=== PATIENT | female | born 1950 | race Caucasian/White ===

== ENCOUNTER → 2019-01-01 11:42 | Outpatient (CLI) | payer MEDICARE, OTHER, SELFPAY ==
--- NOTE | 2019-01-01 | DI.MRI.S_ITS ---
PROCEDURE: MR KNEE LT WO CON INDICATIONS: Unilateral primary osteoarthritis, left knee TECHNIQUE: Noncontrast sagittal PD fast spin echo and T2 fast spin echo with fat saturation, sagittal 3-D FLASH with fat saturation; coronal T1 spin echo and PD fast spin echo with fat saturation, and axial PD fast spin echo with fat saturation through the knee. COMPARISON: [facility], MR, KNEE WITHOUT CONTRAST, 01/25/2017, 12:17. FINDINGS: Image quality: Excellent. Menisci: Medial meniscal tear involving the body and posterior horn. There is partial extrusion, and large radial defect seen on image 25 series 10. Lateral meniscus grossly intact Cruciate ligaments: Thickening and striated appearance of the anterior cruciate ligament. There is T2 hyperintensity and findings suggest mucoid degeneration versus age-indeterminate sprain Medial structures: The medial collateral ligament appears intact although mild proximal thickening, also age unknown. Semimembranosus insertional tendinopathy and thickening. Mild fluid adjacent to the pes anserinus suggestive of low-grade bursitis. Lateral structures: The lateral collateral ligament, long and short heads of the biceps femoris tendon appear intact. The popliteus tendon appears normal; the popliteofibular ligament appears intact. The posterosuperior and anteroinferior popliteomeniscal fascicles appear intact. The arcuate and fabellofibular ligaments appear intact, on either side of the lateral inferior geniculate artery. Iliotibial band appears normal. Anterior structures: Quadriceps tendon grossly intact. There is mild patellar tendinopathy. Prepatellar and superficial infrapatellar subcutaneous edema/fluid. Bones and cartilage: No focal marrow contusion or discrete low signal fracture line. Within the medial compartment, diffuse partial thickness loss of the femoral (near full-thickness) and tibial articular cartilage. Within the lateral compartment, intrasubstance signal change of the central weightbearing tibial cartilage. Diffuse partial thickness loss of the femoral cartilage. Within the patellofemoral compartment, diffuse partial thickness loss of the patellar and trochlear cartilage. Joint space: There is physiologic knee joint fluid. No Gutierrez's cyst. IMPRESSION: Medial meniscal tear involving the body and posterior horn with partial extrusion as detailed above. Signal changes and thickening of the anterior cruciate ligament suggestive of age indeterminate sprain versus mucoid degeneration. Mild patellar tendinopathy. Tricompartmental degenerative joint disease as above. Mild pes anserinus bursitis. Low-grade proximal MCL sprain, age unknown. Dictated by: Alex Villar M.D. on 01/01/2019 at 13:37 Approved by: Alex Villar M.D. on 01/01/2019 at 14:00
== END ==
PROVIDERS: PCP Family Medicine; Visit Provider Orthopaedic Surgery
DX: M17.12 Unilateral primary osteoarthritis, left knee (principal); S83.242A Other tear of medial meniscus, current injury, left knee, initial encounter; S83.412A Sprain of medial collateral ligament of left knee, initial encounter; M67.962 Unspecified disorder of synovium and tendon, left lower leg; M71.562 Other bursitis, not elsewhere classified, left knee
CPT/HCPCS: 73721

== ENCOUNTER → 2019-01-30 09:41 | Outpatient (CLI) | payer MEDICARE, OTHER, SELFPAY ==
--- NOTE | 2019-01-30 | DI.US.S_ITS ---
PROCEDURE: US THYROID INDICATIONS: RIGHT THYROID NODULE TECHNIQUE: Real-time scanning was performed of the thyroid gland, with image documentation. COMPARISON: [facility], , US THYROID, 10/02/2018, 22:02. FINDINGS: Patient was reexamined and the previously visualized right inferior thyroid nodule was unable to be clearly seen and therefore no fine-needle aspiration was performed. IMPRESSION: Diffusely heterogeneous thyroid and no focal nodule was able to be clearly visualized on today's examination. No FNA performed. Dictated by: Elroy Brennan Sherly Interpreted: Jennie Jones MD on 01/30/2019 at 13:55 Approved by: Jennie Jones M.D. on 01/30/2019 at 17:58
== END ==
PROVIDERS: PCP Family Medicine; Visit Provider Otolaryngology
DX: E04.1 Nontoxic single thyroid nodule (principal)
CPT/HCPCS: 76536

== ENCOUNTER 2019-03-05 15:22 | Emergency (ER) | payer MEDICARE, OTHER, SELFPAY ==
[2019-03-05 15:25] VITALS: BP 182/88; PULSE 78; RESP 18; TEMP 37.1; O2SAT 98
--- NOTE | 2019-03-05 15:39 | PC.NURSE ---
dr vazquez at bs. pt with cervical collar , with slow bilateral nostril bleeding, dr vazquez applied afrin spray, with nose clips. pt c/o jaw pain, neck pain, right lower knee pain. family at [facility].
--- NOTE | 2019-03-05 15:44 | DI.CT.S_ITS ---
PROCEDURE: CT FACIAL BONES WO CON INDICATIONS: fall forward nose bleed TECHNIQUE: Noncontrast 2.5 mm thick axial images acquired from the mandible through the frontal sinuses, with coronal and sagittal reformatting. For radiation dose reduction, the following was used: automated exposure control, adjustment of mA and/or kV according to patient size. COMPARISON: None. FINDINGS: Image quality: Excellent. Bones and teeth: Orbital barnes are intact. Sinus barnes show no fracture or deformity. Nasal bones and septum are injured with mild impaction of bilateral nasal bone fractures and also a sigmoid curvature of the midline nasal septum with slight irregularity of the middle third of the septum to the degree that slightly displaced midline nasal septum fracture is considered likely present. Visualized portions of the mandible demonstrate no fractures or subluxation. Zygomatic arches are intact. Pterygoid plates are intact. Visualized portions of the skull base and auditory canals are intact. Sinuses: Paranasal sinuses are aerated, without fluid levels, mucosal thickening, or mucoceles. Mastoid air cells are aerated. Soft tissues: No edema, masses, or fluid collections. There is soft tissue opacification through the midline nasal airway is, slightly greater on the left than the right, consistent with reflux of epistaxis in the setting of bilateral acute nasal bone fractures. No enlarged lymph nodes. No soft tissue lacerations or debris. Vascular: Visualized vascular structures appear normal in the absence of contrast. Bony vascular foramina and canals are intact. IMPRESSION: No orbital fracture found, bilaterally mildly impacted acute nasal bone fractures are present. The midline nasal septum also likely is fractured in the setting of its sigmoid curvature and slight irregularity through its middle third. Secondary reflux of epistaxis is the presumed cause for partial opacification of the bilateral nasal airways greater on the left than the right and the adjacent ethmoid air cells. Dictated by: Luis Fernando Mckeon M.D. on 03/05/2019 at 16:22 Approved by: Luis Fernando Mckeon M.D. on 03/05/2019 at 16:25
--- NOTE | 2019-03-05 15:44 | DI.CT.S_ITS ---
PROCEDURE: CT CERVICAL SPINE WO CON INDICATIONS: fall forward TECHNIQUE: Noncontrast 3 mm thick sections acquired from the skull base to the T4 level. Sagittal and coronal reformats were then constructed. For radiation dose reduction, the following was used: automated exposure control, adjustment of mA and/or kV according to patient size. COMPARISON: None. FINDINGS: Image quality: Excellent. Bones: No fractures or dislocations. Visualized superior ribs are intact. Soft tissues: Prevertebral soft tissues are normal in thickness. No paravertebral hematomas. No apical pneumothoraces. IMPRESSION: No fracture or traumatic subluxation found. Dictated by: Luis Fernando Mckeon M.D. on 03/05/2019 at 16:25 Approved by: Luis Fernando Mckeon M.D. on 03/05/2019 at 16:25
--- NOTE | 2019-03-05 15:44 | DI.RAD.S_ITS ---
PROCEDURE: XR KNEE RT 3V INDICATIONS: A 68-year-old woman history of fall and right knee pain. TECHNIQUE: 3 views of the knee were acquired. COMPARISON: [facility] [place], CR, XR KNEE ARTHRITIC SERIES , 12/20/2018, 10:17. FINDINGS: Bones: There is right knee total arthroplasty. The right kidney prosthesis appears intact.. No fractures or dislocations. No suspicious bony lesions. Soft tissues: Small to moderate joint effusion. No suspicious soft tissue calcifications. IMPRESSION: 1. No acute bony abnormalities. 2. Post surgical changes with right knee total arthroplasty. 3. Small to moderate knee joint effusion. Dictated by: Jennie Jones M.D. on 03/05/2019 at 16:11 Approved by: Jennie Jones M.D. on 03/05/2019 at 16:15
--- NOTE | 2019-03-05 15:44 | DI.CT.S_ITS ---
PROCEDURE: CT HEAD/BRAIN WO CON INDICATIONS: fall forward TECHNIQUE: Noncontrast 4.5 mm thick angled axial sections acquired from the foramen magnum to the vertex, with coronal and sagittal reformats. For radiation dose reduction, the following was used: automated exposure control, adjustment of mA and/or kV according to patient size. COMPARISON: None. FINDINGS: Image quality: Excellent. CSF spaces: Basal cisterns are patent. No extra-axial fluid collections. The ventricles are symmetric in size and shape. Brain: No intracranial bleeds or masses. There is cerebral volume loss for age, with resultant ventricular and sulcal prominence. There are periventricular and deep white matter chronic small vessel ischemic changes. There is intracranial internal carotid artery atherosclerosis. Skull and face: Calvarium and visualized facial bones appear intact, without suspicious lesions. Sinuses: Visualized sinuses and mastoids are clear except for presence of what appears to be reflux of epistaxis into the nasal airway associated with bilateral mildly impacted nasal bone fractures appear acute. IMPRESSION: No brain parenchymal injury or intracranial hemorrhage is found. Reflux of epistaxis into the nasal airway is present bilaterally with opacification, consistent with posttraumatic change after bilateral nasal bone fractures. Dictated by: Luis Fernando Mckeon M.D. on 03/05/2019 at 16:21 Approved by: Luis Fernando Mckeon M.D. on 03/05/2019 at 16:22
--- NOTE | 2019-03-05 15:47 | ED_ITS ---
HPI - Fall General Chief Complaint: Fall Stated Complaint: fall Time Seen by Provider: 03/05/19 15:43 Source: patient Mode of arrival: ambulatory Limitations: no limitations History of Present Illness HPI Narrative: Patient is a 68-year-old female on aspirin tripped and fell over a curb. She fell forward landing flat on her face. She had quite a bit of blood loss from her nose. No loss of consciousness she has no neck pain. She is complaining of nose pain. No loose teeth. She fell onto her knees as well mostly her right knee hurts. Also complaining of some right shoulder pain, had previous injury there. Patient was here for an outpatient DVT study of her left leg for swelling. MD complaint: fall Onset (ago): minute(s) Related Data Home Medications Medication Instructions Recorded Confirmed Lantus U-100 Insulin 30 units SQ QPM #0 04/05/17 03/05/19 metformin 1,000 mg PO BIDCC #0 04/05/17 03/05/19 simvastatin 20 mg PO BEDTIME #0 04/05/17 03/05/19 aspirin 81 mg PO DAILY 03/05/19 03/05/19 insulin glargine [Lantus U-100 70 units SUBCUT QAM 03/05/19 03/05/19 Insulin] insulin syringe-needle U-100 [BD 03/05/19 03/05/19 Insulin Syringe Ultra-Fine] lisinopril 5 mg PO DAILY 03/05/19 03/05/19 Previous Rx's Medication Instructions Recorded hydrocodone-acetaminophen [[place]] 1 tab PO Q4-6H PRN #10 tab 03/05/19 Allergies Allergy/AdvReac Type Severity Reaction Status Date / Time Penicillins [PENICILLINS] Allergy Severe HIVES Verified 03/05/19 16:10 vancomycin [VANCOMYCIN] Allergy Severe HIVES Verified 03/05/19 16:10 adhesive tape [ADHESIVE TAPE] Allergy Intermediate BLISTERS Verified 03/05/19 16:10 PAPER/FOAM TAPE OK phenylephrine [PHENYLEPHRINE] Allergy Intermediate HIVES Verified 03/05/19 16:10 Sulfa (Sulfonamide Allergy Intermediate HIVES Verified 03/05/19 16:10 Antibiotics) [SULFA (SULFONAMIDE ANTIBIOTICS)] nickel [NICKEL] Allergy Mild HIVES Verified 03/05/19 16:10 potassium chloride Allergy Mild HIVES Verified 03/05/19 16:10 [POTASSIUM CHLORIDE] Review of Systems Review of Systems ROS Unobtainable: All systems reviewed & are unremarkable except as noted in HPI and below Constitutional Denies chills, Denies fever(s), Denies lethargy and Denies weakness Eyes Denies change in vision, Denies eye discharge, Denies irritation and Denies loss of vision ENT Ears, Nose, Mouth, and Throat: Reports as per HPI, Reports facial pain (nose) and Reports epistaxis Cardiovascular Denies chest pain, Denies irregular heart rhythm, Denies lightheadedness, Denies palpitations, Denies dyspnea, Denies dyspnea on exertion and Denies orthopnea Respiratory Denies cough, Denies dyspnea, Denies dyspnea on exertion and Denies wheezing Gastrointestinal Gastrointestinal: Denies abdominal pain, Denies change in bowel habits, Denies diarrhea, Denies nausea and Denies vomiting Genitourinary Denies hematuria, Denies flank pain, Denies urinary incontinence and Denies urinary urgency Musculoskeletal Denies back pain, Denies muscle weakness, Denies numbness and Denies tingling Integumentary/Breasts Denies pruritus, Denies erythema, Denies rash and Denies wounds Neurologic Denies loss of vision, Denies numbness, Denies tingling and Denies weakness Endocrine Denies palpitations Allergic/Immunologic Denies wheezing Exam Initial Vital Signs Initial Vital Signs: Vital Signs Temperature 98.8 F 03/05/19 15:25 Pulse Rate 78 03/05/19 15:25 Respiratory Rate 18 03/05/19 15:25 Blood Pressure 182/88 H 03/05/19 15:25 Pulse Oximetry 98 03/05/19 15:25 GENERAL: Alert well-appearing elderly female seems to be in mild pain HEENT: Head abrasion noted on the forehead and nose. Epistaxis bilateral nares NECK: Mild tenderness C-collar placed in ED CARDIOVASCULAR: Regular rate and rhythm without murmurs, rubs or gallops. RESPIRATORY: Breath sounds equal bilaterally, no wheezes rales or rhonchi. ABDOMEN: Soft, nontender. Normoactive bowel sounds all 4 quadrants. No guarding or rebound. BACK: No vertebral tenderness no step-offs EXTREMITIES: Normal range of motion, no clubbing or edema. Neurovascularly intact Right knee stable mild swelling no erythema no sign of contusion pelvis and hip stable. Right shoulder tender or clavicle but no step-offs full range of motion shoulder NEUROLOGICAL: Alert and oriented x4.Normal gait and speech. Cranial nerves II through XII grossly intact. SKIN: Warm, dry, no laceration, no petechiae, no rashes or lesions. [facility], [facility] Medical History Diabetes (Acute) Hyperlipidemia (Acute) Hypertension (Acute) Social History Smoking Status: Never smoker Social History Smoking Status: Never smoker Procedures Epistaxis Control Time Out Performed: Yes Nostril: right Nose Prepped With: oxymetazoline Direct Inspection: unable to visualize Clots Removed by: blowing nose Device Inserted: hemostatic balloon Patient Tolerated Procedure: well Complications: pain Course Orders Ordered: Discontinued Medications Acetaminophen (Tylenol) 650 mg PO NOW ONE Stop: 03/05/19 16:12 Last Admin: 03/05/19 16:12 Dose: 650 mg Hydrocodone Bitart/Acetaminophen ([place] 5/325) 1 tab PO NOW ONE Stop: 03/05/19 19:56 Last Admin: 03/05/19 19:59 Dose: 1 tab Hydromorphone HCl (Dilaudid) 0.5 mg SUBCUT Q4H PRN PRN Reason: Pain, Severe (7-10) Last Admin: 03/05/19 17:17 Dose: 0.5 mg Consultations Consultation #1: Dr. gamboa ENT consulted. Happy to follow up in clinic. No contraindication to rhino rocket. Time: 17:01 Vital Signs - 8 hr 03/05/19 15:25 03/05/19 16:00 03/05/19 16:26 Temperature 98.8 F Pulse Rate 78 75 78 Respiratory Rate 18 17 16 Blood Pressure 182/88 H Blood Pressure [Left Arm] 142/73 H 142/73 H Pulse Oximetry 98 96 95 03/05/19 16:58 03/05/19 18:49 Temperature Pulse Rate 82 72 Respiratory Rate 16 18 Blood Pressure Blood Pressure [Left Arm] 156/71 H Pulse Oximetry 98 99 MDM - Fall Imaging Data CT scan - head: Radiologist's impression: PROCEDURE: CT HEAD/BRAIN WO CON INDICATIONS: fall forward TECHNIQUE: Noncontrast 4.5 mm thick angled axial sections acquired from the foramen magnum to the vertex, with coronal and sagittal reformats. For radiation dose reduction, the following was used: automated exposure control, adjustment of mA and/or kV according to patient size. COMPARISON: None. FINDINGS: Image quality: Excellent. CSF spaces: Basal cisterns are patent. No extra-axial fluid collections. The ventricles are symmetric in size and shape. Brain: No intracranial bleeds or masses. There is cerebral volume loss for age, with resultant ventricular and sulcal prominence. There are periventricular and deep white matter chronic small vessel ischemic changes. There is intracranial internal carotid artery atherosclerosis. Skull and face: Calvarium and visualized facial bones appear intact, without suspicious lesions. Sinuses: Visualized sinuses and mastoids are clear except for presence of what appears to be reflux of epistaxis into the nasal airway associated with bilateral mildly impacted nasal bone fractures appear acute. IMPRESSION: No brain parenchymal injury or intracranial hemorrhage is found. Reflux of epistaxis into the nasal airway is present bilaterally with opacification, consistent with posttraumatic change after bilateral nasal bone fractures. Dictated by: Luis Fernando Mckeon M.D. on 03/05/2019 at 16:21 CT Face: Radiologist's impression: PROCEDURE: CT FACIAL BONES WO CON INDICATIONS: fall forward nose bleed TECHNIQUE: Noncontrast 2.5 mm thick axial images acquired from the mandible through the frontal sinuses, with coronal and sagittal reformatting. For radiation dose reduction, the following was used: automated exposure control, adjustment of mA and/or kV according to patient size. COMPARISON: None. FINDINGS: Image quality: Excellent. Bones and teeth: Orbital barnes are intact. Sinus barnes show no fracture or deformity. Nasal bones and septum are injured with mild impaction of bilateral nasal bone fractures and also a sigmoid curvature of the midline nasal septum with slight irregularity of the middle third of the septum to the degree that slightly displaced midline nasal septum fracture is considered likely present. Visualized portions of the mandible demonstrate no fractures or subluxation. Zygomatic arches are intact. Pterygoid plates are intact. Visualized portions of the skull base and auditory canals are intact. Sinuses: Paranasal sinuses are aerated, without fluid levels, mucosal thickening, or mucoceles. Mastoid air cells are aerated. Soft tissues: No edema, masses, or fluid collections. There is soft tissue opacification through the midline nasal airway is, slightly greater on the left than the right, consistent with reflux of epistaxis in the setting of bilateral acute nasal bone fractures. No enlarged lymph nodes. No soft tissue lacerations or debris. Vascular: Visualized vascular structures appear normal in the absence of contrast. Bony vascular foramina and canals are intact. IMPRESSION: No orbital fracture found, bilaterally mildly impacted acute nasal bone fractures are present. The midline nasal septum also likely is fractured in the setting of its sigmoid curvature and slight irregularity through its middle third. Secondary reflux of epistaxis is the presumed cause for partial opacification of the bilateral nasal airways greater on the left than the right and the adjacent ethmoid air cells. Dictated by: Luis Fernando Mckeon M.D. on 03/05/2019 at 16:22 ct cervical: Radiologist's impression: PROCEDURE: CT CERVICAL SPINE WO CON INDICATIONS: fall forward TECHNIQUE: Noncontrast 3 mm thick sections acquired from the skull base to the T4 level. Sagittal and coronal reformats were then constructed. For radiation dose reduction, the following was used: automated exposure control, adjustment of mA and/or kV according to patient size. COMPARISON: None. FINDINGS: Image quality: Excellent. Bones: No fractures or dislocations. Visualized superior ribs are intact. Soft tissues: Prevertebral soft tissues are normal in thickness. No paravertebral hematomas. No apical pneumothoraces. IMPRESSION: No fracture or traumatic subluxation found. Dictated by: Luis Fernando Mckeon M.D. on 03/05/2019 at 16:25 right knee: Radiologist's impression: PROCEDURE: XR KNEE RT 3V INDICATIONS: A 68-year-old woman history of fall and right knee pain. TECHNIQUE: 3 views of the knee were acquired. COMPARISON: [facility], CR, XR KNEE ARTHRITIC SERIES , 12/20/2018, 10:17. FINDINGS: Bones: There is right knee total arthroplasty. The right kidney prosthesis appears intact.. No fractures or dislocations. No suspicious bony lesions. Soft tissues: Small to moderate joint effusion. No suspicious soft tissue calcifications. IMPRESSION: 1. No acute bony abnormalities. 2. Post surgical changes with right knee total arthroplasty. 3. Small to moderate knee joint effusion. Dictated by: Jennie Jones M.D. on 03/05/2019 at 16:11 right shoulder: Radiologist's impression: PROCEDURE: XR SHOULDER RT MIN 2V INDICATIONS: tripped and fell, now with right shoulder pain TECHNIQUE: 3 views of the shoulder were acquired. COMPARISON: None. FINDINGS: Bones: There is suggestion of old healed proximal humeral shaft fracture with superior migration of humeral shaft in relation to humeral head. Osteoarthritic changes are noted in the acromioclavicular joint and glenohumeral joint. No definite acute fracture is seen. No dislocation. No suspicious bony lesions. Visualized ribs appear intact. Soft tissues: No suspicious soft tissue calcifications. IMPRESSION: Suggestion of old healed proximal humeral shaft fracture and shoulder joint osteoarthritis. No definite acute shoulder fracture or dislocation. Dictated by: Jae Womack M.D. on 03/05/2019 at 16:42 Venous US: Radiologist's impression: PROCEDURE: US PERIPH VENOUS LOW EXTREM LT INDICATIONS: EDEMA TECHNIQUE: Real-time imaging, as well as color and pulse Doppler interrogation, were performed of the lower extremity deep veins from the inguinal ligament to the popliteal fossa . COMPARISON: None. FINDINGS: The common femoral, femoral and popliteal veins are normally compressible, and free of intraluminal thrombus. Color and pulse Doppler demonstrate normal phasic intraluminal flow. There is normal augmentation response to distal compression maneuver. IMPRESSION: No deep vein thrombosis of the left lower extremity. Dictated by: Missy Laura M.D. on 03/05/2019 at 19:18 MDM Narrative Medical decision making narrative: Patient was given Dilaudid overall feeling better. No source of injury other than nasal fracture. Recommend follow-up with ENT. Discharge Plan Departure Patient Disposition: Home Clinical Impression: Closed fracture nasal bone Qualifiers: Encounter type: initial encounter Qualified Code(s): S02.2XXA - Fracture of nasal bones, initial encounter for closed fracture Discharge Date/Time: 03/05/19 20:02 Interventions: ED Discharge Assessment Last Done: 03/05/19 20:01 Instructions: Nose Fracture Activity Restrictions/Additional Instructions: *You have been diagnosed with nasal bone fracture *What to do: You may have some bleeding still. Use clamp, leave clamp on for 30-60 minutes. *Continue to take medications as directed [place] 1 tablet every 6 hours if needed for severe pain *Follow up with your primary care provider in 2-3 days, call ENT tomorrow they will likely see you in the office on Sunday or Sunday *Return to ER if you should have persistent nose bleed dripping down her throat, bleeding not stopping with nasal clamp or any new, worsening or concerning symptoms CONTROLLED SUBSTANCE DISCHARGE (Narcotoic/benzodiazepine/Flexeril/Phenergan) 1. You have been prescribed narcotic medications, it does have acetaminophen/Tylenol/paracetamol in it so do not take extra Tylenol or Tylenol containing products 2. Please understand that we cannot provide further refills of narcotics, benzodiazepines or controlled substances through the ED and her pain management will need to be through your provider. 3. While on these medications you cannot drive or operate heavy machinery. 4. You cannot sign legal documents or perform any duties such as this. 5. As long as you're taking opiate pain medications he should also be taking a stool softener such as Colace, Dulcolax, MiraLAX or prune juice, to help avoid constipation. Prescriptions: New hydrocodone-acetaminophen [[place]] 5-325 mg tablet 1 tab PO Q4-6H PRN (Reason: pain) Qty: 10 RF: 0 No Action simvastatin 20 MG tablet 20 mg PO BEDTIME Qty: 0 RF: 0 metformin 1,000 MG tablet 1,000 mg PO BIDCC Qty: 0 RF: 0 Lantus U-100 Insulin 100 UNIT/1 ML solution 30 units SQ QPM Qty: 0 RF: 0 aspirin 81 mg tablet,delayed release (DR/EC) 81 mg PO DAILY RF: 0 lisinopril 5 mg tablet 5 mg PO DAILY RF: 0 Lantus U-100 Insulin 100 unit/mL solution 70 units subcut QAM RF: 0 insulin syringe-needle U-100 [BD Insulin Syringe Ultra-Fine] 1 mL 30 gauge x 1/2 syringe RF: 0 Referrals: Ernesto Francisco MD [Physician] - Garfield Trinh MD [Physician] - Luke Nino MD [Primary Care Provider] -
[2019-03-05 16:00] VITALS: BP 142/73; PULSE 75; RESP 17; O2SAT 96
[2019-03-05] MEDS: ACETAMINOPHEN 325 MG TABLET 650 MG PO (16:12)
[2019-03-05 16:26] VITALS: BP 142/73; PULSE 78; RESP 16; O2SAT 95
[2019-03-05 16:58] VITALS: BP 156/71; PULSE 82; RESP 16; O2SAT 98
--- NOTE | 2019-03-05 17:00 | DI.RAD.S_ITS ---
PROCEDURE: XR SHOULDER RT MIN 2V INDICATIONS: tripped and fell, now with right shoulder pain TECHNIQUE: 3 views of the shoulder were acquired. COMPARISON: None. FINDINGS: Bones: There is suggestion of old healed proximal humeral shaft fracture with superior migration of humeral shaft in relation to humeral head. Osteoarthritic changes are noted in the acromioclavicular joint and glenohumeral joint. No definite acute fracture is seen. No dislocation. No suspicious bony lesions. Visualized ribs appear intact. Soft tissues: No suspicious soft tissue calcifications. IMPRESSION: Suggestion of old healed proximal humeral shaft fracture and shoulder joint osteoarthritis. No definite acute shoulder fracture or dislocation. Dictated by: Jae Womack M.D. on 03/05/2019 at 16:42 Approved by: Jae Womack M.D. on 03/05/2019 at 16:43
[2019-03-05] MEDS: HYDROMORPHONE 2 MG INJ 0.5 MG SUBCUT (17:17)
--- NOTE | 2019-03-05 17:49 | DI.US.S_ITS ---
PROCEDURE: US PERIPH VENOUS LOW EXTREM LT INDICATIONS: EDEMA TECHNIQUE: Real-time imaging, as well as color and pulse Doppler interrogation, were performed of the lower extremity deep veins from the inguinal ligament to the popliteal fossa. COMPARISON: None. FINDINGS: The common femoral, femoral and popliteal veins are normally compressible, and free of intraluminal thrombus. Color and pulse Doppler demonstrate normal phasic intraluminal flow. There is normal augmentation response to distal compression maneuver. IMPRESSION: No deep vein thrombosis of the left lower extremity. Dictated by: Missy Laura M.D. on 03/05/2019 at 19:18 Approved by: Missy Laura M.D. on 03/05/2019 at 19:19
[2019-03-05 18:49] VITALS: PULSE 72; RESP 18; O2SAT 99
--- NOTE | 2019-03-05 18:52 | PC.NURSE ---
ice pack, on face and right knee.
[2019-03-05] MEDS: HYDROCODONE/ACET 5/325 TABLET 1 TAB PO (19:59)
--- NOTE | 2019-03-05 20:00 | PC.NURSE ---
Pt administered [address] [place] [address] Casey d/t pt being in pain at discharge and having to drive to [place] to fill script. Pt does not want to fill script locally d/t insurance issues. Pt alert and oriented and given ride home by family member. No further bleeding from nose at discharge.
== END 2019-03-05 20:02 | disposition home or self-care (01) ==
PROVIDERS: Emergency Provider Emergency Medicine; PCP Specialist
DX: S02.2XXA Fracture of nasal bones, initial encounter for closed fracture (principal); M25.561 Pain in right knee; M25.511 Pain in right shoulder; R60.0 Localized edema; W01.0XXA Fall on same level from slipping, tripping and stumbling without subsequent striking against object, initial encounter
CPT/HCPCS: 70450; 70486; 72125; 73030; 73562; 93971; 96372; 99283; 99284; J1170

== ENCOUNTER 2019-04-29 06:20 | Inpatient (IN) | payer MEDICARE, OTHER, SELFPAY ==
[2019-04-14 08:11] VITALS: BMI 32.3
[2019-04-29] VITALS (16 sets, daily range): BP systolic 118–166; BP diastolic 64–89; PULSE 61–95; RESP 12–18; TEMP 36.1–36.6; O2SAT 94–98; BMI 30.9
--- NOTE | 2019-04-29 06:36 | DI.RAD.S_ITS ---
PROCEDURE: XR KNEE LT 1TO2V INDICATIONS: post op films TECHNIQUE: 2 view(s) of the knee acquired. COMPARISON: [facility], CR, XR KNEE RT 3V, 03/05/2019, 15:50. FINDINGS: Bones: Patient is status post knee joint arthroplasty. Hardware components are in expected positions. Visualized bony structures are intact. Soft tissues: Overlying postoperative changes are noted. IMPRESSION: Post left total knee arthroplasty changes with anatomic left knee alignment. Dictated by: Jae Womack M.D. on 04/29/2019 at 13:07 Approved by: Jae Womack M.D. on 04/29/2019 at 13:07
[2019-04-29] MEDS: LACTATED RINGERS 1,000 ML 42 ML IV (07:13)
[2019-04-29] MEDS: ACETAMINOPHEN 325 MG TABLET 975 MG PO ×3 (07:20→20:57)
--- NOTE | 2019-04-29 07:39 | SUR.PREOP ---
Spoke with Dr. Avendano regarding current order for Ancef in regards to pt allergy to PCN. Per Dr. Avendano ok to continue with current plan to give Ancef at this time. Communicated this with circulating RN.
--- NOTE | 2019-04-29 07:40 | PM.PREOP ---
Pre-operative Note Interval Note History & Physical reviewed/Exam performed by Physician: Yes Changes to H&P: No
--- NOTE | 2019-04-29 07:41 | P.OP_ITS ---
Operative Date/Time/Diagnoses Date of procedure: 04/29/19 Time of procedure: 07:56 Pre-op diagnosis: left knee OA Post-op diagnosis: same Procedure & Clinicians Procedure: Left total knee arthroplasty Same procedure as scheduled: Yes Indications: The patient has had progressively worsening left knee pain with radiographic changes consistent with arthritis. Non-operative management has failed and the patient has requested total knee replacement. The risks, benefits and alternatives to surgery were discussed with the patient prior to proceeding. Risks discussed included, but were not limited to, failure to relieve pain, stiffness, infection, nerve damage, deep venous thrombosis, pulmonary embolism, stroke, coma, heart attack, permanent paralysis and , as well as the potential need for eventual revision of the prosthetic. Surgeon: Marisa Avendano Tumbling And Rolling Supervisor: Preethi Pérez Anesthesia Type: General and Spinal Operative Notes Findings: Severe left knee osteoarthritis, good stability Closure Type: primary Specimen(s): none sent Prosthetic devices, grafts, tissues, transplants, or devices: Avendano and Nephew Bookerney BCS 2 size 5 femur, size 4 tibia, +10 poly, 35 mm oval patella Applied: drain(s) Estimated Blood Loss (mL): 250 Blood products transfused: none Tourniquet time (min): 93 Procedure in detail: The patient was seen in the pre-operative area, where the patient identified the left knee as the operative site and this was marked with my initials. The patient received pre-operative antibiotics, and was taken to the operating room and placed on the operative table in the supine position. After satisfactory anesthesia, a multimedia coordinator out was performed. The left leg was encircled with a tourniquet about the proximal thigh, and the leg was prepared from the toes to the tourniquet with ChloroPrep in the usual fashion and draped through sterile drapes. The leg was elevated and exsanguinated with Eschmark bandage and the tourniquet inflated to [250] mmHg pressure. The knee was approached through an approximately 18 cm incision centered over the patella and carried into the knee through a medial parapatellar arthrotomy. A portion of the medial and lateral meniscus was resected. Soft tissue was carefully mobilized around the patella the patella was measured with a caliper. Bone was resected from the patella and the patellar height was reconstituted with up an appropriate sized patellar component. A cover was then placed on the patella. A small amount of additional medial and lateral meniscus was resected. The visionare guide fit well to the distal femur. It looked like an appropriate distal femoral cut and the cut was made without difficulty. The rotation was assessed and the appropriate size femoral guide was placed on the distal femur and finishing cuts were made. There was no evidence of notching. The anterior, posterior and chamfer cuts were then made. The posterior osteophytes and soft tissues were then removed. The posterior capsule was injected with part of a mixture of 60 ml 0.25% Marcaine mixed with 20 ml Exparel for post operative pain control. The remainder of this mixture was injected into the capsule and subcutaneous tissues during cement curing. The tibia was prepared and the visionaire guide fit well to the distal tibia. The rotation was assessed. The patient was placed in extension residual medial and lateral meniscus as well as any residual bone was carefully resected. [No] additional tibia was resected. Hemostasis was achieved especially posteriorly. Additional local was injected into the posterior capsule. The extension gap was assessed and additional releases for gap balancing were performed as necessary. It was checked with the gap medical collections representative. The femoral component trial was placed and the notch was finished. Trial tibial and femoral components were then placed and the knee placed through a range of motion. Range of motion was [0- 130], with good stability throughout the range. The trials were then removed, and the tibia was finished. The bone was prepared with pulsatile lavage, and dried with a sponge. Cement was applied and the final prosthetics placed. Excess cement was removed during and after cement curing. A brief Betadine soak was performed. After confirming there was no extruded cement posteriorly, the final tibial insert was placed. The knee was copiously irrigated and the tourniquet deflated. Hemostasis was obtained with the Bovie cautery. A drain was placed and brought out superolaterally. The capsule was closed with interrupted Vicryl suture. The subcutaneous layer was closed with barbed sutures, and the skin with a running 3-0 V-Lock suture and Surgical glue. An Aquacel Ag dressing was applied and the patient was taken to recovery having tolerated the procedure well. Complications: none Condition: stable Disposition: Acute Care Plan for aftercare: The patient will be maintained on a standard total knee replacement protocol with weight bearing as tolerated. The patient will receive Lovenox and sequential compression devices for DVT prophylaxis. The patient will be discharged home when safe for the home environment.
[2019-04-29] MEDS: INSULIN ASPART 100 UNIT/ML 10ML VIAL SUBCUT (08:01)
[2019-04-29] MEDS: CEFAZOLIN 2 GM/100 ML FROZ.PIGGY IV ×2 (08:11→16:23)
--- NOTE | 2019-04-29 08:50 | SUR.OPER ---
Supine on padded OR bed. Pillow under head, arms secured on padded armboards <90 degree abduction. Safety belt across torso. Non-operative leg secured with tape over blanket over lower leg. Operative leg secured in DeMayo positioner. Foam padded brace at thigh of operative leg.
[2019-04-29] MEDS: BUPIVACAINE LIPOSOME 266 MG/20 ML VIAL INJ (09:01)
[2019-04-29] MEDS: BUPIVACAINE 0.25% W/ EPI 30 ML VIAL 60 ML INJ (09:01)
[2019-04-29] MEDS: SODIUM CHLORIDE IRRIG SOLUTION 250 ML, POVIDONE-IODINE SPONGE STICKS 1 APPLIC IRR (09:03)
[2019-04-29] MEDS: DEXTROSE 5% WATER 1,000 ML 84 ML IV (09:45)
--- NOTE | 2019-04-29 10:50 | SUR.OPER ---
Blood sugar at 0905 was 95, at 0935 it was 65, at [address] Lamar issued a verbal order at 0945 for D5W.
[2019-04-29] MEDS: LACTATED RINGERS 1,000 ML 125 ML IV ×2 (12:15→21:01)
--- NOTE | 2019-04-29 15:11 | PT-IP ANOTE ---
Physical therapy order received and chart reviewed. Spoke with her nurse. Patient reports she has been very sleepy and still has numbness in her leg. Will hold eval today and plan to see her tomorrow morning.
--- NOTE | 2019-04-29 16:00 | PC.NURSE ---
Post-op (late entry): Patient arrived to room 212 at 1200. Awake but sleepy, oriented X3. Circulation to BLE's WNL. Strong pedal pulses bilaterally, feet pink and warm. Cap refill <2 sec. Still has some numbness/tingling from the spinal, but is starting to be able to move her feet, wiggle toes, etc. Aron wrap/dressing to L knee C/D/I. Hemovac was unclamped at 1310 and she had 70 ml sanguinous drainage out for this shift. Denies pain, denies urge to void. Vitals stable, room air. Denies N/V, tolerating PO's ok. Oriented to room and call light, instructed re: fall precautions and she agreed to call for assist with mobility/OOB. Light in reach, bed alarm on.
[2019-04-29] MEDS: METFORMIN HCL 500 MG TABLET 1000 MG PO (16:28)
[2019-04-29] MEDS: INSULIN GLARGINE 100 UNIT/ML 3ML PEN 30 UNIT SUBCUT (16:36)
--- NOTE | 2019-04-29 18:30 | PC.NURSE ---
Addendum entered by Karmen Torrez R.N. 04/29/19 22:15: Pt had uneventful evening Denies discomfort. Dsg CDI IV continues as per orders. HS CBG = 370, no S/S ordered. Stable post op course. Call light w/in reach, bed alarm on for pt safety. Continue w/plan of care. Original Note: Pt resting quietly at this time. ' Denies discomfort. Dsg to surgical knee CDI. IV LR @ 125cc/hr infusing via pump into the LFA w/o incidence. AC CBG = 236, Received lantus 30u as per orders. Hemavac intact/patent. Call light w/in reach, bed alrm on for pt safety.
[2019-04-29] MEDS: ASPIRIN EC 81 MG TABLET PO (20:57)
[2019-04-29] MEDS: DOCUSATE 100 MG CAPSULE PO (22:13)
[2019-04-29] MEDS: SIMVASTATIN 20 MG TABLET PO (22:14)
[2019-04-29] MEDS: OXYCODONE IR 5 MG TABLET PO (22:51)
[2019-04-30] MEDS: CEFAZOLIN 2 GM/100 ML FROZ.PIGGY IV (00:28)
--- NOTE | 2019-04-30 01:20 | PC.NURSE ---
Addendum entered by Luann Thompson R.N. 04/30/19 03:35: Found hemovac tubing disconnected from hemovac. Emptied hemovac and then reconnected tubing and compressed the hemovac. Uncertain if will maintain suction; will monitor. Original Note: 0030 Patient is alert and oriented. Breath sounds CTA with RA sat of 97%. HRR. Denies nausea. BT hypoactive but states she has passed flatus. Voiding per bedpan and denies dysuria, frequency or urgency. Is able to move self in bed. Aron wrap to left knee is CDI. Hemovac is compressed and intact. Trace edema present in left foot. CMS is intact. Wearing bilateral SCD's. Reports fall in past 3 months so fall risk score is high and bed alarm is activated. Pain currently 3/10; had received Oxycodone just prior to shift change; ice pack applied.
[2019-04-30 03:52] VITALS: BP 114/72; PULSE 93; RESP 16; TEMP 36.4; O2SAT 95
[2019-04-30 07:42] LABS: Hematocrit 33.6 % (36-46); Hemoglobin 11.2 g/dL (12.0-16.0)
[2019-04-30 08:00] VITALS: BP 131/70; PULSE 83; RESP 17; TEMP 36.6; O2SAT 96
[2019-04-30 08:52] VITALS: BP 131/70
[2019-04-30] MEDS: ACETAMINOPHEN 325 MG TABLET 975 MG PO (08:52)
[2019-04-30] MEDS: LISINOPRIL 5 MG TABLET PO (08:52)
[2019-04-30] MEDS: METFORMIN HCL 500 MG TABLET 1000 MG PO (08:52)
[2019-04-30] MEDS: SODIUM CHLORIDE 0.9% FLUSH 10 ML IV (08:53)
[2019-04-30] MEDS: DOCUSATE 100 MG CAPSULE PO (08:53)
[2019-04-30] MEDS: ASPIRIN EC 81 MG TABLET PO (08:53)
[2019-04-30] MEDS: INSULIN GLARGINE 100 UNIT/ML 3ML PEN 70 UNIT SUBCUT (08:54)
--- NOTE | 2019-04-30 09:01 | P.DS_ITS ---
History of Present Illness History of Present Illness Date Patient Seen: 04/30/19 Time Patient Seen: 09:02 Chief complaint: [id number] Narrative: Hospital day 2, postop day 1 following left total knee arthroplasty by Dr. Avendano. Patient states she is doing well. No significant pain. Using mostly Tylenol. Has had 1 dose of oxycodone. Patient was also seen by Dr. Nirmala smith this morning for rounds. Patient feels comfortable going home with her daughter to help care for her. Discharge Providers Provider Date of admission: 04/29/19 06:20 Discharge Date: 04/30/19 Primary care physician: Bo Humphreys DO Consults: 04/29/19 06:36 Consult to Anesthesiology Routine Comment: Consulting Provider: Anesthesiologist Reason for consultation: Regional block for post operative pain control 04/29/19 12:22 Consult to Discharge Planning Routine Comment: Consult to Physical Therapy Evaluate & Treat Comment: Physician Instructions: postop TKA protocol Consult to Respiratory Therapy Evaluate & Treat Comment: Physician Instructions: Evaluate and treat Discharge provider: Mayank Marino PA-C Summary Hospital Course Discharge Diagnosis: Status post left total knee arthroplasty Hospital Course: Patient brought to hospital on 04/29/2019 for above noted surgery. She remained stable postoperatively. Progressed with physical therapy. Ready for discharge home on postop day 1. Status at Discharge Cognitive/behavioral status at discharge: oriented Functional status at discharge: uses cane/walker Overall status at discharge: patient is progressing back to baseline Time Spent with Patient Time spent: Less than 30 minutes Exam Vital Signs (past 8 hours): - 04/30/19 03:52 04/30/19 08:00 04/30/19 08:52 Temperature 97.6 F 97.9 F Pulse Rate 93 H 83 Respiratory Rate 16 17 Blood Pressure 114/72 131/70 131/70 Pulse Oximetry 95 96 Oxygen Delivery Method Room Air Oxygen Flow Rate 0 Narrative Exam Narrative: Alert, oriented no acute distress resting in bed. Legs. Aron wrap an Aquacel dressing to left knee or dry without drainage or inflammation. Hemovac in place with decreased drainage. No calf pain or swelling. Pulses symmetrical. Objective Labs Result Diagrams: 04/30/19 06:56 Labs: Laboratory Results - last 24 hr 04/30/19 06:56 Hgb 11.2 L Hct 33.6 L Discharge Plan Discharge Plan Patient Disposition: Home Discharge comment: Discharged home today after cleared by physical therapy. Patient does have pain medication at home. She is scheduled to go to [facility] in [place]. Discharge Med Rec/Prescriptions Prescriptions: New acetaminophen 325 mg Tablet 975 mg PO TID Qty: 30 RF: 0 aspirin 81 mg Tablet,Delayed Release (Dr/Ec) 81 mg PO BID Qty: 60 RF: 0 Continued simvastatin 20 MG tablet 20 mg PO BEDTIME Qty: 0 RF: 0 metformin 1,000 MG tablet 1,000 mg PO BIDCC Qty: 0 RF: 0 Lantus U-100 Insulin 100 UNIT/1 ML solution 30 units SQ QPM Qty: 0 RF: 0 lisinopril 5 mg tablet 5 mg PO DAILY RF: 0 insulin glargine 100 unit/mL solution 70 units subcut QAM RF: 0 (DME) insulin syringe-needle U-100 1 mL 30 gauge x 1/2 syringe RF: 0 Follow up/Referrals: Bo Humphreys DO [Primary Care Provider] - Provider Discharge Instructions Diet: Diet as Tolerated Activity: Ambulate as tolerated. Use walker as needed. Do range of motion of knee as comfortable. Cold/Heat Therapy: Cold pack to knee as needed. Skin/Wound/Dressing Care Report to your healthcare provider any signs of infection, such as:: chills, fever, night sweats, increased pain, unusual drainage and unusual redness Dressing: May remove Aron wrap tomorrow. Keep Aquacel dressing in place until postop visit. Visit Report/Discharge Packet Instructions: DI for Knee Replacement Discharge Data Primary Care Provider: Bo Humphreys
--- NOTE | 2019-04-30 10:44 | PT.IIE ---
Current Diagnoses Unilateral primary osteoarthritis, left knee (04/29/19) Surgery Performed Operation Date: 04/29/19 07:45 Actual Procedures p Total Knee Arthroplasty(Left) - Marisa Avendano MD Surgical History (Last Updated 04/14/19 @ 08:16 by Devika Rizvi, RN) History of arthroplasty of right knee (Acute 04/26/17) History of section (Acute) History of strabismus surgery (Acute ~1975) Hx of appendectomy (Acute ~1976) Hx of hernia repair (Acute) Medical History (Last Updated 04/14/19 @ 09:09 by Devika Rizvi, [place]) Anxiety (Acute) Diabetes (Acute) Elbow fracture, right (Acute 03/05/18) Hyperlipidemia (Acute) Hypertension (Acute) Migraines (Acute) Pneumonia (Acute) Shoulder fracture, right (Acute ~2012) Syncope (Acute ~2012) Physical Therapy Inpatient Evaluation/Re-Eval M1 PT/OT-IP Prior Functional Status Start: 04/30/19 10:53 Freq: NEEDED Status: Active Protocol: Document 04/30/19 10:44 DLM (Rec: 04/30/19 11:11 DLM [id number]) Medical Review Prior Functional Status Medical History Reviewed Yes Diet/Fluid Consistency Regular Communication WNL Mobility and Gait Independent gait without device, community distances, used cane if having a lot of knee pain before surgery, she reports limping on left knee before sx. Activities of Daily Living and IADL's Independent, no equipment at baseline, family often does grocery shopping for her Prior Functional Level (Other details) She reports a recent fall at home onto right side, hx of falls in past with resulting right shoulder fx and another fall a right elbow fx. Social History Household Members children Living Arrangements House Number of Floors (Floors) Two Floors Number of Stairs To Enter/Railing? 3, 2 Rails Home Environment Standard Height Toilet,Tub/ Shower Home Equipment Front Wheel Walker,Four Wheel Walker,Straight Cane,Raised Toilet Seat w/Armrests,Tub Transfer Bench Employment Status Retired Additional Social History Comment she plans to stay on the main floor of the house at discharge, bathroom available to use on main level, has dogs and cat at home M2 PT-IP Current Condition Start: 04/30/19 10:53 Freq: NEEDED Status: Active Protocol: Document 04/30/19 10:44 DLM (Rec: 04/30/19 11:11 [facility] [id number]) Physical Therapy Current Condition Current Condition Evaluation Date 04/30/19 Treatment Diagnosis left TKA, impaired gait Onset Date 04/29/19 Weight Bearing Status Weight Bearing Status Weight Bear as Tolerated M3 PT-IP Subjective Start: 04/30/19 10:53 Freq: NEEDED Status: Active Protocol: Document 04/30/19 10:44 DLM (Rec: 04/30/19 11:11 [facility] [id number]) Subjective Physical Therapy Visit Type Type Initial Evaluation Visit Start Time 09:40 Visit Stop Time 10:44 Total Visit Minutes 64 Number of TRANSMISSION ASSEMBLER Visits 0 Physical Therapy Visit Comments Patient Comments Her Daughter plans to help her at home, will be coming to the hospital around 1-2 pm to take her home, she starts OP- PT May 07. Patient Goals discharge home with family assist Therapy Pain Assessment Pain When Pain Assessed After Treatment Pain Present Pain Present Pain Reported Location left leg Intensity 5 Scale Used Numeric (1 - 10) Description Aching Pain Behaviors Guarding Pain Management Techniques Apply Cold M4 PT-IP Mobility and Gait Start: 04/30/19 10:53 Freq: NEEDED Status: Active Protocol: Document 04/30/19 10:44 DLM (Rec: 04/30/19 11:11 [facility] [id number]) PT-Bed Mobility Assessment Supine to Sit Supine to Sit Independent Sit to Supine Sit to Supine Standby Assistance Scooting Scooting to Edge of Bed Independent PT-Transfer Assessment Sit to and From Stand Sit to and from Stand Standby Assistance,Use of Upper Extremities Equipment Transfer Assistive Device Gait Belt,Front Wheeled Walker Transfers Transfer Destination Chair,Toilet Transfer Technique Stand Step Pivot Transfer Ability Level of Assist Standby Assistance,Use of Upper Extremities Gait Assessment Gait Gait Assistance Required: Standby Assistance Distance (Feet) 30 Able to Maintain Weight Bearing Status Yes During Gait Assistive Devices Assistive Device Gait Belt,Front Wheeled Walker Gait Deviations General Gait Pattern Antalgic Factors Limiting Gait Function Factors Limiting Gait Function Decreased Activity Tolerance, Decreased Strength,Limited Range of Motion,Pain Comments Gait Comments 3 trials of gait this visit 15 -30 feet each, she demonstrates safe use of FWW Stair Climbing Assessment Evaluation Level of Assist On Stairs Standby Assistance Devices Stair Climbing Assistive Devices None Technique/Endurance Stair Climbing Direction Ascend and Descend Stair Climbing Technique Step to Step Number of Steps Climbed 3 Query Text: Stair Climbing Set # Repetitions (reps) 1 Comments Stair Climbing Comments verbal cues for sequencing on the stairs PT-Balance Assessment Sitting Balance and Reactions Static Sitting Balance Ability Good Dynamic Sitting Balance Ability Good Standing Balance and Reactions Static Standing Balance Ability Good Dynamic Standing Balance Ability Good Device Used FWW M5 PT-IP Objective Assessments Start: 04/30/19 10:53 Freq: NEEDED Status: Active Protocol: Document 04/30/19 10:44 DLM (Rec: 04/30/19 11:11 [facility] [id number]) Orientation Orientation/Cognition Level of Alertness Alert Orientation Name,Age,Birthday,Month,Date, Year,Day of Week,Place, Situation Language Function Ability No Deficits Noted Safety Awareness Understands Safety Issues Memory Description No Deficits Noted Comments flat affect Gross Range of Motion Upper Extremity ROM Assessment Within Functional Limits Lower Extremity ROM Assessment Left Impaired Impairments AROM knee 15-90 degrees Strength Upper Extremity Strength Assessment Within Functional Limits Lower Extremity Strength Assessment Left Impaired Hip able to do straight leg raise with mild ext lag Knee ext 3+/5, flex 3+/5 Ankle DF 4/5 Comments Strength Comments pain left knee interferes with strength Coordination Assessment Gross Coordination Gross Coordination WNL Assessment Coordination Comments mild tremors noted today throughout Sensation Assessment Sensation Gross Sensation WNL Comments Sensation Comments no numbness reported by pt, preston wrap and post-op dressing on left knee Muscle Tone Muscle Tone WNL Yes M6 PT-IP Treatment Start: 04/30/19 10:53 Freq: NEEDED Status: Active Protocol: Document 04/30/19 10:44 DLM (Rec: 04/30/19 11:11 [facility] [id number]) Physical Therapy Treatment Exercises Exercises Ankle Pumps,Quad Sets,Heel Slides,Straight Leg Raises, Short Arc Quads,Seated Knee Flexion/Extension Education Education Provided Weight Bearing Status,Post-Op Packet,Safety Other Treatments Other Treatment Performed provided post-op packet with written HEP M7 PT-IP Assessment and Plan Start: 04/30/19 10:53 Freq: NEEDED Status: Active Protocol: Document 04/30/19 10:44 DLM (Rec: 04/30/19 11:11 [facility] [id number]) PT Summary Assessment and Plan Potential Rehabilitation Potential Good Status of Condition at Evaluation Evolving Summary Impairments Pain,ROM,Strength,Balance,Bed Mobility,Transfers,Gait, Activity Tolerance Assessment Summary Simin is alert and shows good effort with therapy after left TKA. She is fearful of falling which appears related to her hx of falls in the past . She demonstrates safe use of FWW. Her activity tolerance is low but should be enough to safely discharge home with family assist. She appears safe to discharge home today when medically cleared. Goals Gait Goal Independent,Front Wheel Walker Gait Distance 100 feet Frequency of Treatment Frequency Of Treatment Twice a Day Treatment Plan Physical Therapy Treatment Plan Bed Mobility Training,Transfer Training,Gait Training, Therapeutic Exercise,Post Op Education,Discharge Planning, Hot or Cold Pack Other Recommendations and Next Treatment cleared for discharge home Focus today if medically cleared Recommendations To Nursing Amount of Assist Needed Standby Assistance Discharge Recommendations PT Discharge Recommendations Home with Assistance, Outpatient PT
[2019-04-30 11:29] VITALS: PULSE 83; RESP 16; O2SAT 97
[2019-04-30 11:33] VITALS: BP 132/69; PULSE 74; RESP 16; TEMP 36.8; O2SAT 95
[2019-04-30] MEDS: OXYCODONE IR 5 MG TABLET PO (11:36)
--- NOTE | 2019-04-30 14:22 | PC.NURSE ---
Pt dressed and ready to go home with daughter. Pt states pain to left knee is 3/10 and does not feel that she needs pain meds now but may take something when she gets home. Provided Pt with freshly filled ice packs. Reviewed d/c instructions, discussed d/c meds, time of last dose, encouraged fluid intake to prevent constipation or dehydration. Pt to follow up as ordered. Reviewed s/s of infection and to keep dressing in place until follow up but may removed the preston wrap tomorrow. Pt and daughter deny further questions and are ready to be taken out via w/c by [employer] RESPONDER to pov with Daughter and all belongings.
--- NOTE | 2019-04-30 16:11 | CM.IDA ---
Initial DCP Assessment Note: Pt is a 68 yo female, resident of [place], now POD#1 from [facility] left knee surgery w/ Dr Avendano PCP: Luke Nino Payer: Medicare/[facility] Reviewed chart, pt discussed in multidisciplinary rounds this morning. Therapy has cleared pt for return home w/family to assist, outpt PT, and pt has planned for home, DC order from Ortho PA has already been initiated this morning. No needs expected from DC planning team although will remain available in case this changes today. Pt DC home as expected w/ assist from dtrs Cheli: [phone], Mamie: [phone], Eugenie: [phone] LUPE De [place] Fuente
== END 2019-04-30 14:25 | disposition home or self-care (01) | DRG 470 ==
PROVIDERS: Admitting Provider Orthopaedic Surgery; Family Provider Family Medicine; PCP Family Medicine; Visit Provider Orthopaedic Surgery
PROC: 0SRD0JZ Replacement of Left Knee Joint with Synthetic Substitute, Open Approach (ICD-10-PCS; CPT 27447; principal; 2019-04-29 07:45)
DX: M17.12 Unilateral primary osteoarthritis, left knee (principal); E11.9 Type 2 diabetes mellitus without complications; Z79.4 Long term (current) use of insulin; Z96.651 Presence of right artificial knee joint
CPT/HCPCS: 36415; 73560; 82962; 85014; 85018; 94760; 94762; 97110; 97116; 97162; C1776; C9290; J0690; J1100; J2250; J2274; J2405; J2704; J3010

== ENCOUNTER 2019-05-02 21:04 | Inpatient (IN) | payer MEDICARE, OTHER, SELFPAY ==
[2019-04-29 18:26] VITALS: BMI 30.9
[2019-05-02 21:23] VITALS: BP 119/69; PULSE 112; RESP 21; TEMP 38; O2SAT 98; BMI 32.3
--- NOTE | 2019-05-02 21:28 | DI.RAD.S_ITS ---
PROCEDURE: XR CHEST 1V INDICATIONS: fever TECHNIQUE: One view of the chest was acquired. COMPARISON: None. FINDINGS: Surgical changes and devices: None. Lungs and pleura: Minimal increased vascularity. Mediastinum: Mediastinal contours appear normal. Heart size is mildly prominent. Bones and chest wall: No suspicious bony lesions. Overlying soft tissues appear unremarkable. IMPRESSION: Minimal increased vascularity suggestive of edema. Dictated by: Carolina Archer M.D. on 05/02/2019 at 21:59 Approved by: Carolina Archer M.D. on 05/02/2019 at 22:00
[2019-05-02 21:56] LABS: Add Manual Diff / Slide Review NO; Basophils Absolute Auto 100 /uL (0-100); Basophils Percent Auto 0.9 % (0-2); Eosinophils Absolute Auto 100 /uL (0-450); Eosinophils Percent Auto 0.5 % (2-4); Hematocrit 32.2 % (36-46); Hemoglobin 10.8 g/dL (12.0-16.0); Lymphocytes Absolute Auto 1700 /uL (1100-4500); Lymphocytes Percent Auto 15.1 % (25-40); Mean Corpuscular HGB Conc 33.7 % (30-36); Mean Corpuscular Hemoglobin 29.7 PG (26-34); Mean Corpuscular Volume 88.4 fL (80-100); Monocytes Absolute Auto 1200 /uL (0-900); Monocytes Percent Auto 10.4 % (3-14); Neutrophils Absolute Auto 8100 /uL (1500-7000); Neutrophils Percent Auto 73.1 % (50-75); Platelet Count 226 X10^3/uL (150-400); Red Blood Cell Count 3.64 X10^6/uL (4.0-5.2); Red Cell Distribution Width 13.5 % (11.6-14.8); White Blood Cell Count 11.1 X10^3/uL (4.5-11.0)
--- NOTE | 2019-05-02 21:56 | DI.RAD.S_ITS ---
PROCEDURE: XR KNEE RT 1TO2V INDICATIONS: knee replacement, now s/s of infection TECHNIQUE: 2 views of the knee were acquired. COMPARISON: [facility], CR, XR KNEE LT 1TO2V, 04/29/2019, 11:22. FINDINGS: Bones: No fractures or dislocations. No suspicious bony lesions. Knee arthroplasty is present. Hardware is intact without periprosthetic lucency or fracture. Soft tissues: Moderate joint effusion. No suspicious soft tissue calcifications. Several areas of lucency are noted overlying the edematous soft tissues of the patella. IMPRESSION: 1. Knee arthroplasty with areas of lucency overlying the soft tissues of the patella. This appears new compared to 2017. Recommend correlation to any trauma. Otherwise, infection should be considered. Dictated by: Carolina Archer M.D. on 05/02/2019 at 22:01 Approved by: Carolina Archer M.D. on 05/02/2019 at 22:03
[2019-05-02 22:03] LABS: Lactate (Lactic Acid) 1.7 mmol/L (0.7-2.1)
[2019-05-02 22:08] LABS: Alanine Aminotransferase 11 IU/L (9-52); Albumin 3.8 g/dL (3.5-5.0); Alkaline Phosphatase 59 U/L (38-126); Aspartate Aminotransferase 19 IU/L (14-36); BUN Creatinine Ratio 26.7 (6-22); Bilirubin Total 0.6 mg/dL (0.2-1.3); Blood Urea Nitrogen 16 mg/dL (7-17); Calcium 9.4 mg/dL (8.4-10.2); Carbon Dioxide 28 mmol/L (22-32); Chloride 100 mmol/L (98-107); Estimated Glomerular Filt Rate > 60.0 mL/min (>60); Globulin 3.9 g/dL (1.7-4.1); Glucose 175 mg/dL (80-110); HEMOLYSIS < 15 (0-50); Potassium 3.7 mmol/L (3.4-5.1); Sodium 136 mmol/L (137-145); Total Protein 7.7 g/dL (6.3-8.2)
[2019-05-02] MEDS: SODIUM CHLORIDE 0.9% 1,000 ML 1000 ML IV (22:14)
--- NOTE | 2019-05-02 22:32 | ED_ITS ---
HPI - Wound/Laceration General Chief Complaint: Wound/Laceration Stated Complaint: LEFT KNEE SURGERY HAS FEVER WAS HOT TO TOUCH Time Seen by Provider: 05/02/19 23:05 Source: patient and family (daughter) Mode of arrival: wheelchair Limitations: no limitations History of Present Illness HPI narrative: This is a 68-year-old to the emergency department with complaint of fevers and chills. Patient states she has been up to 102 F at home. She states that her pains been increasingly painful and she has had increasing swelling in the knee as well as the lower leg after a total knee replacement on April 29. Patient states that the knee feels hot. And they had just taken the bandage off here in the emergency department but had noticed a little bit of redness adjacent. Patient has not had a lot of drainage from the knee. She has not had any chest pain, no shortness of breath, she has had a little nausea but no vomiting, she denies any urinary issues. She has had some loose stools frequently. She has been taking Tylenol for pain. She is an insulin-dependent diabetic. Related Data Home Medications Medication Instructions Recorded Confirmed Lantus U-100 Insulin 30 units SQ QPM #0 04/05/17 05/03/19 metformin 1,000 mg PO BIDCC #0 04/05/17 05/03/19 simvastatin 20 mg PO BEDTIME #0 04/05/17 05/03/19 insulin glargine 70 units SUBCUT QAM 03/05/19 05/03/19 insulin syringe-needle U-100 03/05/19 04/29/19 lisinopril 5 mg PO DAILY 03/05/19 05/03/19 acetaminophen 975 mg PO TID PRN 05/03/19 05/03/19 aspirin 81 mg PO DAILY 05/03/19 05/03/19 Allergies Allergy/AdvReac Type Severity Reaction Status Date / Time Penicillins [PENICILLINS] Allergy Severe HIVES Verified 05/02/19 21:23 vancomycin [VANCOMYCIN] Allergy Severe HIVES Verified 05/02/19 21:23 adhesive tape [ADHESIVE TAPE] Allergy Intermediate BLISTERS Verified 05/02/19 21:23 PAPER/FOAM TAPE OK phenylephrine [PHENYLEPHRINE] Allergy Intermediate HIVES Verified 05/02/19 21:23 Sulfa (Sulfonamide Allergy Intermediate HIVES Verified 05/02/19 21:23 Antibiotics) [SULFA (SULFONAMIDE ANTIBIOTICS)] nickel [NICKEL] Allergy Mild HIVES Verified 05/02/19 21:23 potassium chloride Allergy Mild HIVES Verified 05/03/19 06:38 [POTASSIUM CHLORIDE] Review of Systems Review of Systems ROS Unobtainable: All systems reviewed & are unremarkable except as noted in HPI and below PFSH Medical History Anxiety (Acute) Diabetes (Acute) Elbow fracture, right (Acute 03/05/18) Hyperlipidemia (Acute) Hypertension (Acute) Migraines (Acute) Pneumonia (Acute) Shoulder fracture, right (Acute ~2012) Syncope (Acute ~2012) Surgical History History of arthroplasty of right knee (Acute 04/26/17) History of section (Acute) History of strabismus surgery (Acute ~1975) Hx of appendectomy (Acute ~1976) Hx of hernia repair (Acute) Social History household members: children Smoking Status: Never smoker Social History household members: children Smoking Status: Never smoker Exam Narrative Exam Narrative: GENERAL: Alert and oriented x three, obese female in mild distress HEENT: Head normocephalic, atraumatic, EOMI, pupils reactive, face symmetric, moist mucous membranes NECK: Supple, full range of motion CARDIOVASCULAR: Regular rate and rhythm without murmurs, rubs or gallops. RESPIRATORY: Breath sounds equal bilaterally, no wheezes rales or rhonchi. ABDOMEN: Soft, nontender. Normoactive bowel sounds all 4 quadrants. No guarding or rebound, rigidity, no mass EXTREMITIES: Decreased flexion extension of the left knee, patient has incision that appears intact but does have some erythema along the edge in extending outwards. There is no erythema of the lower leg. The knee itself is quite warm without any warmth of the lower leg. It is swollen but it is also swollen in the left lower extremity and into the foot. Patient has 2+ dorsalis pedis on exam. She has normal sensation throughout. SKIN: Warm, dry, no petechiae, see above. Initial Vital Signs Initial Vital Signs: Vital Signs Temperature 100.4 F H 05/02/19 21:23 Pulse Rate 112 H 05/02/19 21:23 Respiratory Rate 21 05/02/19 21:23 Blood Pressure 119/69 05/02/19 21:23 Pulse Oximetry 98 05/02/19 21:23 Course Orders Ordered: ED Orders 05/02/19 21:56 XR knee RT 1to2V Stat 05/02/19 22:00 Blood Culture Stat 05/02/19 23:19 US periph venous low extrem lt Stat 05/03/19 00:01 Cell Count w Diff Body Fluid Stat 05/03/19 00:48 Wound Culture and Gram Stain Stat 05/03/19 01:14 Urine Culture Stat Urine Microscopic Stat Acetaminophen (Tylenol) 975 mg PO TID PRN PRN Reason: Pain, Mild (1-3) Hydrocodone Bitart/Acetaminophen ([place] 5/325) 1 tab PO Q4HR PRN PRN Reason: Pain, Moderate (4-6) Hydrocodone Bitart/Acetaminophen ([place] 5/325) 2 tab PO Q4HR PRN PRN Reason: Pain, Severe (7-10) Al Hydrox/Mg Hydrox/Simethicone (Maalox Plus) 30 ml PO Q6HR PRN PRN Reason: Dyspepsia Aspirin (Aspirin Ec) 81 mg PO DAILY ELIJAH Bisacodyl (Dulcolax) 10 mg [place] DAILY PRN PRN Reason: Constipation Calcium Carbonate (Tums) 1,000 mg PO Q4HR PRN PRN Reason: Dyspepsia Dextrose (D50w) 25 gm IV PRN PRN; Protocol PRN Reason: Hypoglycemia Docusate Sodium (Colace) 100 mg PO BID [facility] Enoxaparin Sodium (Lovenox) 40 mg SUBCUT DAILY [facility] Sodium Chloride (Normal Saline 0.9%) 1,000 mls @ 100 mls/hr IV CONT [facility] Last Admin: 05/03/19 03:33 Dose: 100 mls/hr Documented by: RIVERAEASukhwinder Levofloxacin (Levaquin) 750 mg in 150 mls @ 100 mls/hr IV Q24H [facility] Last Admin: 05/03/19 03:46 Dose: 100 mls/hr Documented by: RIVERAEASukhwinder Clindamycin Phosphate (Cleocin) 900 mg in 50 mls @ 50 mls/hr IV Q8H [facility] Potassium Chloride 40 meq/ (Sodium Chloride) 520 mls @ 130 mls/hr IV NOW ONE Stop: 05/03/19 10:16 Insulin Aspart (Novolog Flexpen) 0 unit SUBCUT ACHS ELIJAH; Protocol Insulin Glargine (Lantus (Vial)) 30 unit SUBCUT QPM ELIJAH Insulin Glargine (Lantus (Vial)) 70 unit SUBCUT DAILY [facility] Lisinopril (Zestril) 5 mg PO DAILY [facility] Ondansetron HCl (Zofran) 4 mg IV Q8HR PRN PRN Reason: Nausea And Vomiting Simvastatin (Zocor) 20 mg PO BEDTIME ELIJAH Discontinued Medications Acetaminophen (Tylenol) 975 mg PO NOW ONE Stop: 05/02/19 23:28 Last Admin: 05/03/19 00:54 Dose: 975 mg Documented by: GREGOR Acetaminophen (Tylenol) 975 mg PO TID PRN PRN Reason: Pain, Moderate Acetaminophen (Tylenol) 975 mg PO TID [facility] Sodium Chloride (Normal Saline 0.9%) 1,000 mls @ 1,000 mls/hr IV BOLUS ONE Stop: 05/02/19 22:55 Last Infusion: 05/03/19 01:00 Dose: 0 mls/hr Documented by: Admin: 05/02/19 22:14 Dose: 1,000 mls/hr Documented by: VELVET Clindamycin Phosphate (Cleocin) 900 mg in 50 mls @ 50 mls/hr IV NOW ONE Stop: 05/03/19 00:26 Last Infusion: 05/03/19 02:10 Dose: 0 mls/hr Documented by: Admin: 05/03/19 01:02 Dose: 50 mls/hr Documented by: GREGOR Insulin Glargine (Lantus (Vial)) 30 unit SUBCUT NOW ONE Stop: 05/02/19 23:20 Last Admin: 05/03/19 00:55 Dose: 30 unit Documented by: GREGOR Cosigned by: IVY Vital Signs Vital signs: Vital Signs - 8 hr 05/02/19 23:30 05/03/19 00:30 05/03/19 01:22 Pulse Rate 20 L 94 H 88 Respiratory Rate 18 16 20 Blood Pressure [Right Arm] 138/61 122/63 126/61 Pulse Oximetry 99 99 95 05/03/19 01:30 Pulse Rate 73 Respiratory Rate 18 Blood Pressure [Right Arm] 125/55 L Pulse Oximetry 96 MDM - Wound/Laceration Lab Data Attestation: I reviewed the patient's lab results. Result diagrams: 05/03/19 05:45 05/03/19 05:45 Labs: Lab Results 05/02/19 05/02/19 05/02/19 Range/Units 21:50 21:50 21:50 WBC 11.1 H (4.5-11.0) X10^3/uL RBC 3.64 L (4.0-5.2) X10^6/uL Hgb 10.8 L (12.0-16.0) g/dL Hct 32.2 L (36-46) % MCV 88.4 (80-100) fL MCH 29.7 (26-34) PG MCHC 33.7 (30-36) % RDW 13.5 (11.6-14.8) % Plt Count 226 (150-400) X10^3/uL Neut % (Auto) 73.1 (50-75) % Lymph % (Auto) 15.1 L (25-40) % [place] % (Auto) 10.4 (3-14) % Eos % (Auto) 0.5 L (2-4) % Baso % (Auto) 0.9 (0-2) % Neut # (Auto) 8100 H (3279-4219) /uL Lymph # (Auto) 1700 (0608-3862) /uL [place] # (Auto) 1200 H (0-900) /uL Eos # (Auto) 100 (0-450) /uL Baso # (Auto) 100 (0-100) /uL ESR (0-20) MM/HR Sodium 136 L (137-145) mmol/L Potassium 3.7 (3.4-5.1) mmol/L Chloride 100 (98-107) mmol/L Carbon Dioxide 28 (22-32) mmol/L BUN 16 (7-17) mg/dL Creatinine 0.60 (0.52-1.04) mg/dL Estimated GFR > 60.0 (>60) mL/min BUN/Creatinine Ratio 26.7 H (6-22) Glucose 175 H (80-110) mg/dL Lactate (0.7-2.1) mmol/L Calcium 9.4 (8.4-10.2) mg/dL Total Bilirubin 0.6 (0.2-1.3) mg/dL AST 19 (14-36) IU/L ALT 11 (9-52) IU/L Alkaline Phosphatase 59 (38-126) U/L C-Reactive Protein (<1.0) mg/dL Total Protein 7.7 (6.3-8.2) g/dL Albumin 3.8 (3.5-5.0) g/dL Globulin 3.9 (1.7-4.1) g/dL Albumin/Globulin Ratio 1.0 (1.0-2.8) Procalcitonin 0.10 (<0.5) ng/mL Urine RBC (0-5/HPF) Urine WBC (0-5/HPF) Ur Squamous Epith Cells (0-5/HPF) Urine Bacteria (None) Ur Culture Indicated? Fluid Color Fluid Appearance Fluid RBC /uL Fld Tot Nucleated Cell /uL Fluid Polynuclear WBCs % Fluid Mononuclear WBCs % Fluid Eosinophils Fluid Other Cells Body Fluid Clot 05/02/19 05/02/19 05/02/19 Range/Units 21:50 21:50 21:50 WBC (4.5-11.0) X10^3/uL RBC (4.0-5.2) X10^6/uL Hgb (12.0-16.0) g/dL Hct (36-46) % MCV (80-100) fL MCH (26-34) PG MCHC (30-36) % RDW (11.6-14.8) % Plt Count (150-400) X10^3/uL Neut % (Auto) (50-75) % Lymph % (Auto) (25-40) % [place] % (Auto) (3-14) % Eos % (Auto) (2-4) % Baso % (Auto) (0-2) % Neut # (Auto) (6432-2950) /uL Lymph # (Auto) (1852-4083) /uL [place] # (Auto) (0-900) /uL Eos # (Auto) (0-450) /uL Baso # (Auto) (0-100) /uL ESR 83 H (0-20) MM/HR Sodium (137-145) mmol/L Potassium (3.4-5.1) mmol/L Chloride (98-107) mmol/L Carbon Dioxide (22-32) mmol/L BUN (7-17) mg/dL Creatinine (0.52-1.04) mg/dL Estimated GFR (>60) mL/min BUN/Creatinine Ratio (6-22) Glucose (80-110) mg/dL Lactate 1.7 (0.7-2.1) mmol/L Calcium (8.4-10.2) mg/dL Total Bilirubin (0.2-1.3) mg/dL AST (14-36) IU/L ALT (9-52) IU/L Alkaline Phosphatase (38-126) U/L C-Reactive Protein 16.0 H (<1.0) mg/dL Total Protein (6.3-8.2) g/dL Albumin (3.5-5.0) g/dL Globulin (1.7-4.1) g/dL Albumin/Globulin Ratio (1.0-2.8) Procalcitonin (<0.5) ng/mL Urine RBC (0-5/HPF) Urine WBC (0-5/HPF) Ur Squamous Epith Cells (0-5/HPF) Urine Bacteria (None) Ur Culture Indicated? Fluid Color Fluid Appearance Fluid RBC /uL Fld Tot Nucleated Cell /uL Fluid Polynuclear WBCs % Fluid Mononuclear WBCs % Fluid Eosinophils Fluid Other Cells Body Fluid Clot 05/02/19 05/03/19 Range/Units 23:52 01:14 WBC (4.5-11.0) X10^3/uL RBC (4.0-5.2) X10^6/uL Hgb (12.0-16.0) g/dL Hct (36-46) % MCV (80-100) fL MCH (26-34) PG MCHC (30-36) % RDW (11.6-14.8) % Plt Count (150-400) X10^3/uL Neut % (Auto) (50-75) % Lymph % (Auto) (25-40) % [place] % (Auto) (3-14) % Eos % (Auto) (2-4) % Baso % (Auto) (0-2) % Neut # (Auto) (7168-4790) /uL Lymph # (Auto) (7909-1219) /uL [place] # (Auto) (0-900) /uL Eos # (Auto) (0-450) /uL Baso # (Auto) (0-100) /uL ESR (0-20) MM/HR Sodium (137-145) mmol/L Potassium (3.4-5.1) mmol/L Chloride (98-107) mmol/L Carbon Dioxide (22-32) mmol/L BUN (7-17) mg/dL Creatinine (0.52-1.04) mg/dL Estimated GFR (>60) mL/min BUN/Creatinine Ratio (6-22) Glucose (80-110) mg/dL Lactate (0.7-2.1) mmol/L Calcium (8.4-10.2) mg/dL Total Bilirubin (0.2-1.3) mg/dL AST (14-36) IU/L ALT (9-52) IU/L Alkaline Phosphatase (38-126) U/L C-Reactive Protein (<1.0) mg/dL Total Protein (6.3-8.2) g/dL Albumin (3.5-5.0) g/dL Globulin (1.7-4.1) g/dL Albumin/Globulin Ratio (1.0-2.8) Procalcitonin (<0.5) ng/mL Urine RBC 0-1/hpf (0-5/HPF) Urine WBC 0-1/hpf (0-5/HPF) Ur Squamous Epith Cells 1-5 /hpf (0-5/HPF) Urine Bacteria Moderate (10-30) H (None) Ur Culture Indicated? Specimen cultured Fluid Color Red Fluid Appearance Bloody Fluid RBC 464314 /uL Fld Tot Nucleated Cell 77685 /uL Fluid Polynuclear WBCs 97 % Fluid Mononuclear WBCs 3 % Fluid Eosinophils Not Reportable Fluid Other Cells Not Reportable Body Fluid Clot No clots present Imaging Data knee xray: Radiologist's impression: [address] [address] XRay Report Signed Patient: Gema Bryan AMR#: [id number] : 9Acct:[id number] Age/Sex: 68 / FDate of Service: 05/02/19 Loc: ED Accession Number: [id number] Procedure: XR knee RT 1to2V Ordering Provider: Niesha Hebert D.O. PROCEDURE: XR KNEE RT 1TO2V INDICATIONS: knee replacement, now s/s of infection TECHNIQUE: 2 views of the knee were acquired. COMPARISON: [facility], CR, XR KNEE LT 1TO2V, 04/29/2019, 11:22. FINDINGS: Bones: No fractures or dislocations. No suspicious bony lesions. Knee arthroplasty is present. Hardware is intact without periprosthetic lucency or fracture. Soft tissues: Moderate joint effusion. No suspicious soft tissue calcifications. Several areas of lucency are noted overlying the edematous soft tissues of the patella. IMPRESSION: 1. Knee arthroplasty with areas of lucency overlying the soft tissues of the patella. This appears new compared to 2017. Recommend correlation to any trauma. Otherwise, infection should be considered. Dictated by: Carolina Archer M.D. on 05/02/2019 at 22:01 Approved by: Carolina Archer M.D. on 05/02/2019 at 22:03 dvt US: Radiologist's impression: prelim dvt is negative. MDM Narrative Medical decision making narrative: Patient findings were discussed with Dr. berg suspicious for possible infection, he came evaluated patient did do joint aspiration of patient's knee which was sent to lab. His suspicion for infection is low she is only about 3 days postop he would suspect other sources possibly. A DVT ultrasound negative, urine shows possible UTI with leukocyte esterase but no nitrates. Patient was initially started on clindamycin prior suspicion for the knee. She did receive Lantus 30 units which is her normal nighttime dose. I spoke with the hospitalist who accepts for observation and orthopedic surgery is on consult. Discharge Plan Departure Patient Disposition: Admitted as Observation Clinical Impression: SIRS (systemic inflammatory response syndrome), Status post left knee replacement Discharge Date/Time: 05/03/19 02:45 Admit Date/Time: 05/03/19 02:02 Admit Provider: Mayank Gould
[2019-05-02 22:35] VITALS: BP 146/66; PULSE 101; RESP 18; O2SAT 100
--- NOTE | 2019-05-02 23:03 | PC.NURSE ---
Left knee is swollen and hot to the touch. Redness extends up left thigh. Pain is increased than at baseline. Pt is unable to bear any weight and movement is limited by pain. Has been taking tylenol for discomfort.
[2019-05-02 23:09] LABS: Erythrocyte Sedimentation Rate 83 MM/HR (0-20)
--- NOTE | 2019-05-02 23:19 | DI.US.S_ITS ---
PROCEDURE: [facility] [place] [facility] LOW EXTREM LT INDICATIONS: EDEMA 3 DAYS POST LEFT KNEE REPLACEMENT TECHNIQUE: Real-time imaging, as well as color and pulse Doppler interrogation, were performed of the lower extremity deep veins from the inguinal ligament to the popliteal fossa. COMPARISON: [facility], [facility] [place] LOW EXTREM LT, 03/05/2019, 18:36. FINDINGS: The common femoral, femoral and popliteal veins are normally compressible, and free of intraluminal thrombus. Color and pulse Doppler demonstrate normal phasic intraluminal flow. There is normal augmentation response to distal compression maneuver. IMPRESSION: Negative for deep venous thrombosis. Note: No significant discrepancy from the preliminary report. Dictated by: Manuel Lacy M.D. on 05/03/2019 at 8:42 Approved by: Manuel Lacy M.D. on 05/03/2019 at 8:42
[2019-05-02 23:30] VITALS: BP 138/61; PULSE 20; RESP 18; O2SAT 99
[2019-05-03] VITALS (12 sets, daily range): BP systolic 104–143; BP diastolic 55–97; PULSE 73–104; RESP 15–20; TEMP 36.1–37.4; O2SAT 94–99; BMI 32.3
--- NOTE | 2019-05-03 | P.CONS_ITS ---
History of Present Illness Consult details Date Patient Seen: 05/02/19 Time Patient Seen: 23:50 Chief complaint: LEFT KNEE SURGERY HAS FEVER WAS HOT TO TOUCH Reason for consult: L knee postop swelling and fever Requesting provider: Niesha Hebert Narrative: 68-year-old female who had a left total knee replacement 3 days ago. She had been discharged home but had been running fevers. Temperature was as high as 102? earlier today. Her knee was becoming painful and she needed her daughters to help her just to move it. She did have some redness and swelling on the medial aspect of the knee. She is an insulin-dependent diabetic. [facility] Medical History Anxiety (Acute) Diabetes (Acute) Elbow fracture, right (Acute 03/05/18) Hyperlipidemia (Acute) Hypertension (Acute) Migraines (Acute) Pneumonia (Acute) Shoulder fracture, right (Acute ~2012) Syncope (Acute ~2012) Surgical History History of arthroplasty of right knee (Acute 04/26/17) History of section (Acute) History of strabismus surgery (Acute ~1975) Hx of appendectomy (Acute ~1976) Hx of hernia repair (Acute) Social History household members: children Smoking Status: Never smoker Social History household members: children Smoking Status: Never smoker Meds Home Medications and Allergies Home Medications Medication Instructions Recorded Confirmed Type Lantus U-100 Insulin 30 units SQ QPM #0 04/05/17 04/29/19 History metformin 1,000 mg PO BIDCC #0 04/05/17 04/29/19 History simvastatin 20 mg PO BEDTIME #0 04/05/17 04/29/19 History insulin glargine 70 units SUBCUT QAM 03/05/19 04/29/19 History insulin syringe-needle U-100 03/05/19 04/29/19 History lisinopril 5 mg PO DAILY 03/05/19 04/29/19 History acetaminophen 975 mg PO TID #30 tab 04/30/19 Rx aspirin 81 mg PO BID #60 tab 04/30/19 Rx Allergies Allergy/AdvReac Type Severity Reaction Status Date / Time Penicillins [PENICILLINS] Allergy Severe HIVES Verified 05/02/19 21:23 vancomycin [VANCOMYCIN] Allergy Severe HIVES Verified 05/02/19 21:23 adhesive tape [ADHESIVE TAPE] Allergy Intermediate BLISTERS Verified 05/02/19 21:23 PAPER/FOAM TAPE OK phenylephrine [PHENYLEPHRINE] Allergy Intermediate HIVES Verified 05/02/19 21:23 Sulfa (Sulfonamide Allergy Intermediate HIVES Verified 05/02/19 21:23 Antibiotics) [SULFA (SULFONAMIDE ANTIBIOTICS)] nickel [NICKEL] Allergy Mild HIVES Verified 05/02/19 21:23 potassium chloride Allergy Mild HIVES Verified 05/02/19 21:23 [POTASSIUM CHLORIDE] Review of Systems Constitutional Constitutional: Reports fever(s) Exam Vital Signs (past 8 hours): - 05/02/19 21:23 05/02/19 22:35 Temperature 100.4 F H Pulse Rate 112 H 101 H Respiratory Rate 21 18 Blood Pressure 119/69 Blood Pressure [Right Arm] 146/66 H Pulse Oximetry 98 100 Oxygen Delivery Method Room Air Const Orientation: alert and oriented x3 Extrem Other: Left knee moderate appropriate postoperative swelling. Minimal erythema. Red skin changes underneath the dressing site adhesive material, but nothing along the midline. Tender along the medial and lateral joint line with swelling. Pain with attempt to flex the knee more than 15?. Easily wiggles toes. 2+ dorsalis pedis pulse. Objective Labs Result Diagrams: 05/02/19 21:50 05/02/19 21:50 Labs: Laboratory Results - last 24 hr 05/02/19 05/02/19 05/02/19 21:50 21:50 21:50 WBC 11.1 H RBC 3.64 L Hgb 10.8 L Hct 32.2 L MCV 88.4 MCH 29.7 MCHC 33.7 RDW 13.5 Plt Count 226 Neut % (Auto) 73.1 Lymph % (Auto) 15.1 L [place] % (Auto) 10.4 Eos % (Auto) 0.5 L Baso % (Auto) 0.9 Neut # (Auto) 8100 H Lymph # (Auto) 1700 [place] # (Auto) 1200 H Eos # (Auto) 100 Baso # (Auto) 100 ESR Sodium 136 L Potassium 3.7 Chloride 100 Carbon Dioxide 28 BUN 16 Creatinine 0.60 Estimated GFR > 60.0 BUN/Creatinine Ratio 26.7 H Glucose 175 H Lactate Calcium 9.4 Total Bilirubin 0.6 AST 19 ALT 11 Alkaline Phosphatase 59 C-Reactive Protein Total Protein 7.7 Albumin 3.8 Globulin 3.9 Albumin/Globulin Ratio 1.0 Procalcitonin 0.10 05/02/19 05/02/19 05/02/19 21:50 21:50 21:50 WBC RBC Hgb Hct MCV MCH MCHC RDW Plt Count Neut % (Auto) Lymph % (Auto) [place] % (Auto) Eos % (Auto) Baso % (Auto) Neut # (Auto) Lymph # (Auto) [place] # (Auto) Eos # (Auto) Baso # (Auto) ESR 83 H Sodium Potassium Chloride Carbon Dioxide BUN Creatinine Estimated GFR BUN/Creatinine Ratio Glucose Lactate 1.7 Calcium Total Bilirubin AST ALT Alkaline Phosphatase C-Reactive Protein 16.0 H Total Protein Albumin Globulin Albumin/Globulin Ratio Procalcitonin Assessment & Plan Assessment & Plan narrative: I explained to her that I think the chance of a postoperative wound infection is extremely low only 3 days after surgery. Most likely this is either coming from pulmonary, urinary, or DVT. An ultrasound was done in the emergency room and a preliminary report had no DVT. We are waiting on urine culture. However, as she is having increasing swelling, greatly decreased range of motion, and is an insulin dependent diabetic I felt it would be prudent to try to aspirate the joint to make sure there was no purulence. Risks and benefits of this procedure were discussed with her and she wished to proceed. Procedure detail the medial aspect of the left knee was prepped in the standard sterile fashion. A needle was advanced through the medial joint line into the joint space without any resistance. Two 12 mL syringes were filled with aura dark bloody aspirate. There was no evidence of any purulence. Sterile dressing was placed. We will send the fluid for culture and Gram stain as well as a cell count. Again I am extremely doubtful that this would be infected. Her ESR and CRP are elevated. However, these are expected to be elevated significantly in the 1st week after an Orthopedic surgery where hardware was implanted. Time Spent With Patient Time with patient: 15-24 minutes
[2019-05-03 00:05] LABS: Body Fluid Color RED
[2019-05-03 00:06] LABS: Body Fluid Appearance BLOODY; Body Fluid Clotted? NO CLOTS PRESENT
[2019-05-03 00:30] LABS: Body Fluid Red Blood Cells 909476 /uL; Body Fluid Tot Nucleated Cells 22377 /uL
[2019-05-03] MEDS: ACETAMINOPHEN 325 MG TABLET 975 MG PO ×3 (00:54→23:53)
[2019-05-03] MEDS: INSULIN GLARGINE 100 UNIT/ML 10ML VIAL 30 UNIT SUBCUT (00:55)
[2019-05-03] MEDS: CLINDAMYCIN 900 MG/50 ML PIGGYBACK 50 MG IV ×4 (01:02→23:53)
[2019-05-03 01:45] LABS: Bacteria Urine Moderate (10-30); RBC Urine 0-1/HPF (0-5/HPF); Squamous Epithelial Cell Urine 1-5 /HPF (0-5/HPF); WBC Urine 0-1/HPF (0-5/HPF)
[2019-05-03 01:54] LABS: Mononuclear WBC Body Fluid 3 %; Polynuclear WBC Body Fluid 97 %
--- NOTE | 2019-05-03 02:54 | P.HP_ITS ---
History of Present Illness History of Present Illness Date Patient Seen: 05/03/19 Time Patient Seen: 02:19 Chief complaint: LEFT KNEE SURGERY HAS FEVER WAS HOT TO TOUCH Narrative: Ms. Gema Bryan is a 68-year-old female patient with history significant for insulin-dependent diabetes, hypertension, hyperlipidemia, TIA, migraines and osteoarthritis who presents to the ER today with postop fever. The patient underwent left total knee arthroplasty with Dr. Avendano on 04/29/2019. The patient reports beginning to feel ill on postop day 3 with complaints of fevers and chills, headache, nausea without vomiting and diarrhea. Patient also noted that her blood sugars were more elevated and resistant to her usual treatment. She self-treated at home with Tylenol which did not seem to help significantly. The patient good planes of her left knee being warm, red and painful. She denies complaints of dizziness nasal congestion or sore throat. She has had no chest pain palpitations, shortness of breath cough or wheezing. She denies abdominal pain. She ambulates with difficulty and has not yet started physical therapy. She reports no paresthesias however the entire left leg is painful and swollen. Upon arrival in the emergency department the patient has a temperature of 100.4?, is tachycardic at 112, blood pressure 119/69, respiratory rate of 21 saturating 98% on room air. An x-ray of the knee finds areas of soft tissue show lucency overlying edematous tissue of the patella. Chest x-ray finds minimal increased vascularity suggestive of edema. Dr. Bustamante orthopedics was consulted who came in and tapped the knee with aspirated fluid sent to the ER that was bloody in appearance with results pending. On laboratory analysis the patient has an elevated white count of 11.1, hemoglobin of 10.8 hematocrit of 32.2 and platelets of 226. Her chemistry panel is unremarkable with a nonfasting glucose of 175. She does have an elevated BUN creatinine ratio of 26.7. A screening UA was obtained noting bacteria and reflex to culture. She had a CRP that is elevated at 16, sed rate elevated at 83, lactate that is normal 1.7 and procalcitonin is 0.1. The patient received Tylenol and was started on clindamycin 900 mg IV. The patient received her nighttime dose of glargine 30 units in the ER. The patient is admitted for SIRS with an unknown source of infection at this time. Patient History Medical History Anxiety (Acute) Diabetes (Acute) Elbow fracture, right (Acute 03/05/18) Hyperlipidemia (Acute) Hypertension (Acute) Migraines (Acute) Pneumonia (Acute) Shoulder fracture, right (Acute ~2012) Syncope (Acute ~2012) Surgical History History of arthroplasty of right knee (Acute 04/26/17) History of section (Acute) History of strabismus surgery (Acute ~1975) Hx of appendectomy (Acute ~1976) Hx of hernia repair (Acute) Social History household members: children Smoking Status: Never smoker Family & Social History Safety & Behavioral: Feels Safe in Current Yes Environment Tobacco & Substance use: Smoking Status Never smoker alcohol intake frequency 0-2 drinks per day Substance Use Type does not use Comment: The patient has been for 1 year and lives in a two-story house. She provides history of her father having dementia, diabetes and malignant melanoma in her mother passing away from early onset Alzheimer's. She has 2 brothers and 2 sisters whom she describes in good health. Smoking: The patient has never smoked. Alcohol: The patient does not consume alcohol. Substance use: The patient denies use of recreational pharmaceuticals, herbal or cannabis products. Advanced directives: The patient has formal advanced directives and states her desire to be FULL CODE. She denies sick nits her daughter Cheli or Mamie be her surrogate decision makers. Meds Home Medications and Allergies Home Medications Medication Instructions Recorded Confirmed Type Lantus U-100 Insulin 30 units SQ QPM #0 04/05/17 05/03/19 History metformin 1,000 mg PO BIDCC #0 04/05/17 05/03/19 History simvastatin 20 mg PO BEDTIME #0 04/05/17 05/03/19 History insulin glargine 70 units SUBCUT QAM 03/05/19 05/03/19 History insulin syringe-needle U-100 03/05/19 04/29/19 History lisinopril 5 mg PO DAILY 03/05/19 05/03/19 History acetaminophen 975 mg PO TID PRN 05/03/19 05/03/19 History aspirin 81 mg PO DAILY 05/03/19 05/03/19 History Allergies Allergy/AdvReac Type Severity Reaction Status Date / Time Penicillins [PENICILLINS] Allergy Severe HIVES Verified 05/02/19 21:23 vancomycin [VANCOMYCIN] Allergy Severe HIVES Verified 05/02/19 21:23 adhesive tape [ADHESIVE TAPE] Allergy Intermediate BLISTERS Verified 05/02/19 21:23 PAPER/FOAM TAPE OK phenylephrine [PHENYLEPHRINE] Allergy Intermediate HIVES Verified 05/02/19 21:23 Sulfa (Sulfonamide Allergy Intermediate HIVES Verified 05/02/19 21:23 Antibiotics) [SULFA (SULFONAMIDE ANTIBIOTICS)] nickel [NICKEL] Allergy Mild HIVES Verified 05/02/19 21:23 potassium chloride Allergy Mild HIVES Verified 05/02/19 21:23 [POTASSIUM CHLORIDE] Review of Systems Review of Systems ROS Unobtainable: All systems reviewed & are unremarkable except as noted in HPI and below Exam Vital Signs (past 8 hours): - 05/02/19 21:23 05/02/19 22:35 05/03/19 01:22 Temperature 100.4 F H Pulse Rate 112 H 101 H 88 Respiratory Rate 21 18 20 Blood Pressure 119/69 Blood Pressure [Right Arm] 146/66 H 126/61 Pulse Oximetry 98 100 95 Oxygen Delivery Method Room Air Narrative Exam Narrative: GENERAL APPEARANCE: well developed, obese female with BMI of 32.3 who is uncomfortable appearing. HEAD: Normocephalic, atraumatic, no scalp lesions. EYES: pupils equal, round, reactive to light and accommodation, sclera non- icteric, extraocular movement intact without nystagmus. EARS: normal external structures, no ear pain NOSE: sinuses non tender to percussion, no rhinorrhea ORAL CAVITY: mucosa moist without lesions or exudate, palate normal, tongue in midline. THROAT: normal, no erythema, no exudate, posterior pharynx normal. NECK/THYROID: neck supple, no jugular venous distention, no carotid bruit, no thyromegaly, trachea midline. LYMPH NODES: no cervical or supraclavicular or inguinal lymphadenopathy. SKIN: Flushed, warm and dry, no suspicious lesions, no rashes, good turgor. HEART: regular rate and rhythm, S1-S2 without murmur, no rubs or gallops, brisk capillary refill, generalized nonpitting edema the left lower extremity LUNGS: clear to auscultation bilaterally, no coarseness crackles or wheezing, no cough present CHEST: Symmetrical movement, no accessory muscle use, no pain to AP and lateral compression. ABDOMEN: Soft, round, no distention, no epigastric or abdominal tenderness on palpation, no organomegaly, no flank or suprapubic tenderness, active bowel tones. BACK: Nontender to palpation, EXTREMITIES: Well approximated surgical scar anterior left knee without signs of wound infection, surrounding swelling warmth and erythema, pain on palpation left thigh and left lower extremity, no discrete calf tenderness on palpation, moves all extremities, strength is 5/5 and symmetrical, no deformities. NEUROLOGIC: AAO x4, no focal neurologic deficits, motor strength normal upper and lower extremities, sensory exam intact to light touch, hearing grossly normal to speech. PSYCH: alert, cognitive function intact, good eye contact, appropriate with stable behavior Objective Labs Result Diagrams: 05/02/19 21:50 05/02/19 21:50 Labs: Laboratory Results - last 24 hr 05/02/19 05/02/19 05/02/19 21:50 21:50 21:50 WBC 11.1 H RBC 3.64 L Hgb 10.8 L Hct 32.2 L MCV 88.4 MCH 29.7 MCHC 33.7 RDW 13.5 Plt Count 226 Neut % (Auto) 73.1 Lymph % (Auto) 15.1 L [place] % (Auto) 10.4 Eos % (Auto) 0.5 L Baso % (Auto) 0.9 Neut # (Auto) 8100 H Lymph # (Auto) 1700 [place] # (Auto) 1200 H Eos # (Auto) 100 Baso # (Auto) 100 ESR Sodium 136 L Potassium 3.7 Chloride 100 Carbon Dioxide 28 BUN 16 Creatinine 0.60 Estimated GFR > 60.0 BUN/Creatinine Ratio 26.7 H Glucose 175 H Lactate Calcium 9.4 Total Bilirubin 0.6 AST 19 ALT 11 Alkaline Phosphatase 59 C-Reactive Protein Total Protein 7.7 Albumin 3.8 Globulin 3.9 Albumin/Globulin Ratio 1.0 Procalcitonin 0.10 Urine RBC Urine WBC Ur Squamous Epith Cells Urine Bacteria Ur Culture Indicated? Fluid Color Fluid Appearance Fluid RBC Fld Tot Nucleated Cell Fluid Polynuclear WBCs Fluid Mononuclear WBCs Fluid Eosinophils Fluid Other Cells Body Fluid Clot 05/02/19 05/02/19 05/02/19 21:50 21:50 21:50 WBC RBC Hgb Hct MCV MCH MCHC RDW Plt Count Neut % (Auto) Lymph % (Auto) [place] % (Auto) Eos % (Auto) Baso % (Auto) Neut # (Auto) Lymph # (Auto) [place] # (Auto) Eos # (Auto) Baso # (Auto) ESR 83 H Sodium Potassium Chloride Carbon Dioxide BUN Creatinine Estimated GFR BUN/Creatinine Ratio Glucose Lactate 1.7 Calcium Total Bilirubin AST ALT Alkaline Phosphatase C-Reactive Protein 16.0 H Total Protein Albumin Globulin Albumin/Globulin Ratio Procalcitonin Urine RBC Urine WBC Ur Squamous Epith Cells Urine Bacteria Ur Culture Indicated? Fluid Color Fluid Appearance Fluid RBC Fld Tot Nucleated Cell Fluid Polynuclear WBCs Fluid Mononuclear WBCs Fluid Eosinophils Fluid Other Cells Body Fluid Clot 05/02/19 05/03/19 23:52 01:14 WBC RBC Hgb Hct MCV MCH MCHC RDW Plt Count Neut % (Auto) Lymph % (Auto) [place] % (Auto) Eos % (Auto) Baso % (Auto) Neut # (Auto) Lymph # (Auto) [place] # (Auto) Eos # (Auto) Baso # (Auto) ESR Sodium Potassium Chloride Carbon Dioxide BUN Creatinine Estimated GFR BUN/Creatinine Ratio Glucose Lactate Calcium Total Bilirubin AST ALT Alkaline Phosphatase C-Reactive Protein Total Protein Albumin Globulin Albumin/Globulin Ratio Procalcitonin Urine RBC 0-1/hpf Urine WBC 0-1/hpf Ur Squamous Epith Cells 1-5 /hpf Urine Bacteria Moderate (10-30) H Ur Culture Indicated? Specimen cultured Fluid Color Red Fluid Appearance Bloody Fluid RBC 018483 Fld Tot Nucleated Cell 11159 Fluid Polynuclear WBCs 97 Fluid Mononuclear WBCs 3 Fluid Eosinophils Not Reportable Fluid Other Cells Not Reportable Body Fluid Clot No clots present Assessment & Plan Assessment & Plan narrative: The patient is admitted to the hospital for fever of unknown origin meeting SIRS criteria with elevated temperature, elevated heart rate, hyperglycemia in the setting of insulin-dependent diabetes, elevated infection markers of CRP and sed rate. 1. Systemic inflammatory response syndrome, acute, present on admission, active. -the patient presents with symptoms of leukocytosis at 11.1, elevated temperature 100.4?, elevated heart rate at 112, elevated glucose above typical baseline for the patient at 175, sed rate of 83, CRP of 16. -risk factors include status post left total knee arthroplasty, postop day 3 at onset of symptoms and diabetes. -blood cultures have been drawn, operative left knee was aspirated by Dr. Bustamante orthopedics, no indication of pneumonia on chest x-ray, will obtain respiratory PCR panel. -patient started on clindamycin 900 mg IV in the ER. Will continue and add levofloxacin 750 mg IV daily. 2. Insulin-dependent diabetes, uncontrolled, chronic, active. -patient reports elevated blood sugars following onset of symptoms with less response to usual insulin pattern. Hemoglobin A1c on 04/02/2019 was 7.4. -Accu-Cheks AC and HS, constant carbohydrate diet. -will continue home regimen of basal insulin Lantus 70 units in the morning and 30 units at night. -Humalog correctional insulin medium dose range. 3. Status post left total knee arthroplasty, postop day 4, active -the left leg is painful on palpation within tear left leg swollen, venous duplex is negative for DVT. -Dr. Marquez has aspirated the knee with lab results yet pending. We thank Dr. Bustamante for ongoing consultation and recommendations. -the patient is not yet started physical therapy, PT and OT to evaluate and treat. -[place] 5/325, 1-2 tablets every 4 hours as needed for pain. 4. Essential Hypertension, chronic, stable -Continue patient's home regimen of lisinopril 5 mg daily 5. Hyperlipidemia, chronic, presumed stable -Continue patient's home regimen of simvastatin 20 mg at bedtime The patient is admitted to the hospital with SIRS, symptoms meeting septic criteria at with unidentified source. The patient is admitted as an inpatient with expected length of stay to be greater than 2 midnights. Time Spent With Patient Time with patient: 25 - 35 minutes
[2019-05-03] MEDS: SODIUM CHLORIDE 0.9% 1,000 ML 100 ML IV ×2 (03:33→21:27)
[2019-05-03] MEDS: levoFLOXacin 750 MG/150 ML PIGGYBACK 100 MG IV (03:46)
[2019-05-03 04:50] LABS: Adenovirus Not Detected (Not Detect); Coronavirus 229E Not Detected (Not Detect); Coronavirus HKU1 Not Detected (Not Detect); Coronavirus NL 63 Not Detected (Not Detect); Coronavirus OC43 Not Detected (Not Detect); Human Metapneumovirus Not Detected (Not Detect); Human Rhinovirus/Enterovirus Not Detected (Not Detect); Influenza A Not Detected (Not Detect); Influenza B Not Detected (Not Detect)
[2019-05-03 04:51] LABS: Bordetella pertussis Not Detected (Not Detect); Chlamydophila pneumoniae Not Detected (Not Detect); Mycoplasma pneumoniae Not Detected (Not Detect); Parainfluenza Virus 1 Not Detected (Not Detect); Parainfluenza Virus 2 Not Detected (Not Detect); Parainfluenza Virus 3 Not Detected (Not Detect); Parainfluenza Virus 4 Not Detected (Not Detect); Respiratory Syncytial Virus Not Detected (Not Detect)
[2019-05-03 06:00] LABS: Add Manual Diff / Slide Review NO; Basophils Absolute Auto 0 /uL (0-100); Basophils Percent Auto 0.5 % (0-2); Eosinophils Absolute Auto 100 /uL (0-450); Eosinophils Percent Auto 1.6 % (2-4); Hematocrit 29.3 % (36-46); Lymphocytes Absolute Auto 1700 /uL (1100-4500); Lymphocytes Percent Auto 22.3 % (25-40); Mean Corpuscular HGB Conc 34.2 % (30-36); Mean Corpuscular Hemoglobin 30.1 PG (26-34); Mean Corpuscular Volume 87.9 fL (80-100); Monocytes Absolute Auto 900 /uL (0-900); Monocytes Percent Auto 11.7 % (3-14); Neutrophils Absolute Auto 4800 /uL (1500-7000); Neutrophils Percent Auto 63.9 % (50-75); Platelet Count 218 X10^3/uL (150-400); Red Blood Cell Count 3.33 X10^6/uL (4.0-5.2); Red Cell Distribution Width 13.5 % (11.6-14.8); White Blood Cell Count 7.6 X10^3/uL (4.5-11.0)
[2019-05-03 06:07] LABS: BUN Creatinine Ratio 21.7 (6-22); Blood Urea Nitrogen 13 mg/dL (7-17); Calcium 8.7 mg/dL (8.4-10.2); Carbon Dioxide 28 mmol/L (22-32); Chloride 104 mmol/L (98-107); Estimated Glomerular Filt Rate > 60.0 mL/min (>60); Glucose 102 mg/dL (80-110); HEMOLYSIS < 15 (0-50); Potassium 3.3 mmol/L (3.4-5.1); Sodium 139 mmol/L (137-145)
[2019-05-03 06:46] LABS: Procalcitonin 0.09 ng/mL (<0.5)
[2019-05-03] MEDS: POTASSIUM CHLORIDE 40 MEQ in SODIUM CHLORIDE 0.9% 500 ML 130 ML IV (07:32)
[2019-05-03] MEDS: LISINOPRIL 5 MG TABLET PO (08:37)
[2019-05-03] MEDS: ASPIRIN EC 81 MG TABLET PO (08:37)
[2019-05-03] MEDS: ENOXAPARIN 40 MG/0.4 ML SYRINGE SUBCUT (08:38)
[2019-05-03] MEDS: INSULIN GLARGINE 100 UNIT/ML 3ML PEN 70 UNIT SUBCUT (08:46)
--- NOTE | 2019-05-03 09:19 | CM.DANOTE ---
DCP: Case received, EMR reviewed and met with patient. Introduced self and role. Was able to obtain baseline health information and living situation from patient. DCP template/assessment completed with information currently available. Patient is a 68 year old female who admitted early this morning to the care of the hospitalist team. PCP: Dr. Humphreys Payer: confirmed: Medicare/[employer]. Patient came to the hospital via family vehicle secondary to fever, and redness to her left knee. Patient had been here recently, on 04/29, with a left total knee replacement. Patient currently has infection to the area. Met with patient in her room. She is alert and oriented. Stated that she does use a walker at home, has been hard to get around lately. Patient is a , but her two daughters live with her. Patient verified that they assist her with showers, meals, take her to appts. She resides in [place]. P: DCP will follow closely. Will see how he progresses here in hospital. Patient may benefit with home health. Will check in with P.T. team as well. Lenka Fish RN/Family Dentist
--- NOTE | 2019-05-03 10:00 | PM.PNPO.1 ---
Subjective Subjective Date Patient Seen: 05/03/19 Time Patient Seen: 10:00 Interval history: Patient's pain is [id number]. Denies fever chills. No nausea vomiting. Patient had no urinary symptoms prior to presenting to the emergency room. No recent history of UTI. Exam Vital Signs (past 8 hours): - 05/03/19 02:45 05/03/19 03:08 05/03/19 08:00 Temperature 98.4 F 97.8 F Pulse Rate 76 88 90 Respiratory Rate 18 16 16 Blood Pressure 120/97 H 133/73 Blood Pressure [Right Arm] 125/60 Pulse Oximetry 96 94 97 05/03/19 08:51 Temperature Pulse Rate Respiratory Rate Blood Pressure Blood Pressure [Right Arm] Pulse Oximetry 97 Oxygen Delivery Method Room Air Narrative Exam Narrative: Pleasant 68-year-old female resting comfortably in bed in no apparent distress. Left knee incision is healing well. No drainage. Generalized ecchymosis. Sensation grossly intact distal left lower extremity. Motor function is intact distally. Left leg is warm and dry. Objective Labs Result Diagrams: 05/03/19 05:45 05/03/19 05:45 Labs: Laboratory Results - last 24 hr 05/02/19 05/02/19 05/02/19 21:50 21:50 21:50 WBC 11.1 H RBC 3.64 L Hgb 10.8 L Hct 32.2 L MCV 88.4 MCH 29.7 MCHC 33.7 RDW 13.5 Plt Count 226 Neut % (Auto) 73.1 Lymph % (Auto) 15.1 L [place] % (Auto) 10.4 Eos % (Auto) 0.5 L Baso % (Auto) 0.9 Neut # (Auto) 8100 H Lymph # (Auto) 1700 [place] # (Auto) 1200 H Eos # (Auto) 100 Baso # (Auto) 100 ESR Sodium 136 L Potassium 3.7 Chloride 100 Carbon Dioxide 28 BUN 16 Creatinine 0.60 Estimated GFR > 60.0 BUN/Creatinine Ratio 26.7 H Glucose 175 H Lactate Calcium 9.4 Total Bilirubin 0.6 AST 19 ALT 11 Alkaline Phosphatase 59 C-Reactive Protein Total Protein 7.7 Albumin 3.8 Globulin 3.9 Albumin/Globulin Ratio 1.0 Procalcitonin 0.10 Urine RBC Urine WBC Ur Squamous Epith Cells Urine Bacteria Ur Culture Indicated? Fluid Color Fluid Appearance Fluid RBC Fld Tot Nucleated Cell Fluid Polynuclear WBCs Fluid Mononuclear WBCs Fluid Eosinophils Fluid Other Cells Body Fluid Clot Chlamy pneumoniae PCR Adenovirus (PCR) B.parapertussis DNA PCR Coronavirus OC43 (PCR) Coronavirus HKU1 (PCR) Coronavirus 229E (PCR) Coronavirus NL63 (PCR) Human Metapneumovir PCR Influenza Type A (PCR) Influenza Type B (PCR) M. pneumoniae (PCR) Parainfluenza 1 (PCR) Parainfluenza 2 (PCR) Parainfluenza 3 (PCR) Parainfluenza 4 (PCR) RSV (PCR) Entero/Rhino (PCR) 05/02/19 05/02/19 05/02/19 21:50 21:50 21:50 WBC RBC Hgb Hct MCV MCH MCHC RDW Plt Count Neut % (Auto) Lymph % (Auto) [place] % (Auto) Eos % (Auto) Baso % (Auto) Neut # (Auto) Lymph # (Auto) [place] # (Auto) Eos # (Auto) Baso # (Auto) ESR 83 H Sodium Potassium Chloride Carbon Dioxide BUN Creatinine Estimated GFR BUN/Creatinine Ratio Glucose Lactate 1.7 Calcium Total Bilirubin AST ALT Alkaline Phosphatase C-Reactive Protein 16.0 H Total Protein Albumin Globulin Albumin/Globulin Ratio Procalcitonin Urine RBC Urine WBC Ur Squamous Epith Cells Urine Bacteria Ur Culture Indicated? Fluid Color Fluid Appearance Fluid RBC Fld Tot Nucleated Cell Fluid Polynuclear WBCs Fluid Mononuclear WBCs Fluid Eosinophils Fluid Other Cells Body Fluid Clot Chlamy pneumoniae PCR Adenovirus (PCR) B.parapertussis DNA PCR Coronavirus OC43 (PCR) Coronavirus HKU1 (PCR) Coronavirus 229E (PCR) Coronavirus NL63 (PCR) Human Metapneumovir PCR Influenza Type A (PCR) Influenza Type B (PCR) M. pneumoniae (PCR) Parainfluenza 1 (PCR) Parainfluenza 2 (PCR) Parainfluenza 3 (PCR) Parainfluenza 4 (PCR) RSV (PCR) Entero/Rhino (PCR) 05/02/19 05/03/19 05/03/19 23:52 01:14 03:25 WBC RBC Hgb Hct MCV MCH MCHC RDW Plt Count Neut % (Auto) Lymph % (Auto) [place] % (Auto) Eos % (Auto) Baso % (Auto) Neut # (Auto) Lymph # (Auto) [place] # (Auto) Eos # (Auto) Baso # (Auto) ESR Sodium Potassium Chloride Carbon Dioxide BUN Creatinine Estimated GFR BUN/Creatinine Ratio Glucose Lactate Calcium Total Bilirubin AST ALT Alkaline Phosphatase C-Reactive Protein Total Protein Albumin Globulin Albumin/Globulin Ratio Procalcitonin Urine RBC 0-1/hpf Urine WBC 0-1/hpf Ur Squamous Epith Cells 1-5 /hpf Urine Bacteria Moderate (10-30) H Ur Culture Indicated? Specimen cultured Fluid Color Red Fluid Appearance Bloody Fluid RBC [id number] Fld Tot Nucleated Cell 92024 Fluid Polynuclear WBCs 97 Fluid Mononuclear WBCs 3 Fluid Eosinophils Not Reportable Fluid Other Cells Not Reportable Body Fluid Clot No clots present Chlamy pneumoniae PCR Not detected Adenovirus (PCR) Not detected B.parapertussis DNA PCR Not detected Coronavirus OC43 (PCR) Not detected Coronavirus HKU1 (PCR) Not detected Coronavirus 229E (PCR) Not detected Coronavirus NL63 (PCR) Not detected Human Metapneumovir PCR Not detected Influenza Type A (PCR) Not detected Influenza Type B (PCR) Not detected M. pneumoniae (PCR) Not detected Parainfluenza 1 (PCR) Not detected Parainfluenza 2 (PCR) Not detected Parainfluenza 3 (PCR) Not detected Parainfluenza 4 (PCR) Not detected RSV (PCR) Not detected Entero/Rhino (PCR) Not detected 05/03/19 05/03/19 05/03/19 05:45 05:45 05:45 WBC 7.6 RBC 3.33 L Hgb 10.0 L Hct 29.3 L MCV 87.9 MCH 30.1 MCHC 34.2 RDW 13.5 Plt Count 218 Neut % (Auto) 63.9 Lymph % (Auto) 22.3 L [place] % (Auto) 11.7 Eos % (Auto) 1.6 L Baso % (Auto) 0.5 Neut # (Auto) 4800 Lymph # (Auto) 1700 [place] # (Auto) 900 Eos # (Auto) 100 Baso # (Auto) 0 ESR Sodium 139 Potassium 3.3 L Chloride 104 Carbon Dioxide 28 BUN 13 Creatinine 0.60 Estimated GFR > 60.0 BUN/Creatinine Ratio 21.7 Glucose 102 Lactate Calcium 8.7 Total Bilirubin AST ALT Alkaline Phosphatase C-Reactive Protein Total Protein Albumin Globulin Albumin/Globulin Ratio Procalcitonin 0.09 Urine RBC Urine WBC Ur Squamous Epith Cells Urine Bacteria Ur Culture Indicated? Fluid Color Fluid Appearance Fluid RBC Fld Tot Nucleated Cell Fluid Polynuclear WBCs Fluid Mononuclear WBCs Fluid Eosinophils Fluid Other Cells Body Fluid Clot Chlamy pneumoniae PCR Adenovirus (PCR) B.parapertussis DNA PCR Coronavirus OC43 (PCR) Coronavirus HKU1 (PCR) Coronavirus 229E (PCR) Coronavirus NL63 (PCR) Human Metapneumovir PCR Influenza Type A (PCR) Influenza Type B (PCR) M. pneumoniae (PCR) Parainfluenza 1 (PCR) Parainfluenza 2 (PCR) Parainfluenza 3 (PCR) Parainfluenza 4 (PCR) RSV (PCR) Entero/Rhino (PCR) Assessment & Plan Post-op Postoperative Procedures: Patient status post left total knee arthroplasty April 29, 2019. Patient was discharged home and returned to the emergency room late May [address] Marquez consulted on the patient late last night. He was able to aspirate 24 mL of aura blood. Cultures pending. UA positive for UTI. Urine culture is pending. Patient will be started on Nitrofurantoin 50 mg PO q6H x 5 days. Ultrasound done in the Emergency Room per report Negative for DVT. Postoperative day: 4 Postoperative status: doing well Postoperative plan: routine post-op care Time Spent With Patient Time with patient: less than 15 minutes
[2019-05-03] MEDS: INSULIN ASPART 100 UNIT/ML INSULN PEN SUBCUT (12:01)
--- NOTE | 2019-05-03 15:17 | OT.IP.EVAL ---
Past Medical History (Last Reviewed 05/03/19 @ 03:04 by LINDA Pedro) Anxiety (Acute) Diabetes (Acute) Elbow fracture, right (Acute 03/05/18) Hyperlipidemia (Acute) Hypertension (Acute) Migraines (Acute) Pneumonia (Acute) Shoulder fracture, right (Acute ~2012) Syncope (Acute ~2012) Surgical History (Last Reviewed 05/03/19 @ 03:04 by LINDA Pedro) History of arthroplasty of right knee (Acute 04/26/17) History of section (Acute) History of strabismus surgery (Acute ~1975) Hx of appendectomy (Acute ~1976) Hx of hernia repair (Acute) Occupational Therapy Inpatient Evaluation/Re-Eval M1 PT/OT-IP Prior Functional Status Start: 05/03/19 14:43 Freq: NEEDED Status: Active Protocol: Document 05/03/19 14:43 CGR (Rec: 05/03/19 15:16 CGR [email or web address]) Medical Review Prior Functional Status Medical History Reviewed Yes Communication Pt is able to communicate effectively. Mobility and Gait Pt was IND in all mobility prior to recent sx. Activities of Daily Living and IADL's Pt was IND in all ADLs and IADLs prior to recent sx. Per pt, her family sometimes did the grocery shopping for her. Social History Household Members children Living Arrangements House Number of Floors (Floors) Two Floors Number of Stairs To Enter/Railing? 3 steps to enter with B railings. Pts room and full bath are on the second floor. Home Environment Standard Height Toilet,Tub/ Shower Home Equipment Front Wheel Walker,Four Wheel Walker,Straight Cane,Raised Toilet Seat w/Armrests,Tub Transfer Bench,Hand Held Shower Employment Status Retired Additional Social History Comment Pt lives with her 2 adult daughters and grandchildren. M2 OT-IP Current Condition Start: 05/03/19 14:43 Freq: Status: Active Protocol: Document 05/03/19 14:43 CGR (Rec: 05/03/19 15:16 CGR [email or web address]) Occupational Therapy Current Condition Current Condition Evaluation Date 05/03/19 Treatment Diagnosis Fever and incision redness s/p 04/29 TKA Weight Bearing Status Weight Bearing Status Full Weight Bearing M3 OT- IP Subjective and Pain Start: 05/03/19 14:43 Freq: Status: Active Protocol: Document 05/03/19 14:43 CGR (Rec: 05/03/19 15:16 CGR [email or web address]) OT- Subjective Occupational Therapy Visit Type Type Initial Evaluation Visit Start Time 13:05 Visit Stop Time 13:30 Total Visit Minutes 25 Occupational Therapy Visit Comments Patient Comments I don't need to go to the bathroom but it might be nice to brush my teeth. OT Pain Assessment Pain When Pain Assessed At Rest Pain Present Pain Present Pain Reported Location left leg Intensity 4 Scale Used Numeric (1 - 10) Management Techniques Distraction,Re-positioning M4 OT- IP ADL's Start: 05/03/19 14:43 Freq: Status: Active Protocol: Document 05/03/19 14:43 CGR (Rec: 05/03/19 15:16 CGR [email or web address]) OT [id number] Comments OT Self-Feeding Comments Not meal time OT ADL-Grooming General Evaluation Grooming Ability Standby Assistance Areas Needing Assistance Retrieving/Set-up of Grooming Items,Face Washing Comments OT Grooming Comments standing at sink OT ADL-Oral Care General Eval Oral Care Ability Standby Assistance Areas of Assistance Brushing Teeth,Retrieving/Set- Up of Items Comments Oral Care Comments standing at sink OT ADL-Dressing Comments OT Dressing Comments not performed on this date OT ADL-Toileting Comments OT Toileting Comments pt declienkelly, states that she just performed. OT ADL-Bathing Comments OT Bathing Comments Not performed on this date. M5 OT- IP IADL's Start: 05/03/19 14:43 Freq: Status: Active Protocol: Document 05/03/19 14:43 CGR (Rec: 05/03/19 15:16 CGR [email or web address]) OT-Instrumental Activities of Daily Living Deficits IADL Deficits Identified Deficits Home Safety Awareness Awareness of Need for Assistance at Home Good Awareness Ability to Problem Solve Emergency Able to Problem Solve Situations Medication Management Medication Management No Deficits Identified Money Management Money Management No Deficits Identified Meal Preparation Meal Preparation Caregiver Provides Assist Kinder Teacher Kinder Teacher Caregiver Provides Assist Driving Driving Caregiver Provides Assist M6 OT- IP Functional Cognition Start: 05/03/19 14:43 Freq: Status: Active Protocol: Document 05/03/19 14:43 CGR (Rec: 05/03/19 15:16 CGR [email or web address]) Cognitive Factors Limiting Selfcare Function Cognitive Ability Level of Alertness Alert Patient Orientation Name,Age,Birthday,Month,Date, Year,Day of Week,Place, Situation Attention Span Ability Capable of Focused Attention, Capable of Sustained Attention Ability to Follow Commands Able to Follow Multi-Step Commands Memory Description No Deficits Noted Safety Awareness No Deficits Noted Problem Solving Ability No deficits Noted Executive Function Ability No Deficits Noted Abstract Thinking Ability No Deficits Noted OT- Vision and Hearing OT- Hearing Assessment OT- Hearing Assessment WFL OT- Vision Assessment Visual Acuity WFL Visual Attentiveness WFL Occular Pursuits WFL Visual Convergence WFL Visual Bell WFL Vision Assessment Comments Pt wears glasses for distance. M7 OT- IP Mobility and Balance Start: 05/03/19 14:43 Freq: Status: Active Protocol: Document 05/03/19 14:43 CGR (Rec: 05/03/19 15:16 CGR [email or web address]) OT-Transfer Assessment Sit to and From Stand Sit to and from Stand Contact Guard Assistance Transfers Transfer Ability Contact Guard Assistance Technique Transfer Destination Chair Transfer Technique Stand Step Pivot Devices Transfer Assistive Devices Gait Belt,Front Wheeled Walker OT- Gait Assessment Gait Gait Assistance Required: Contact Guard Assist Assistive Devices Assistive Device Gait Belt,Front Wheeled Walker Comments Gait Ability Comments Mobility around the room. OT- Balance Assessment Sitting Balance and Reactions Static Sitting Balance Ability Normal Dynamic Sitting Balance Ability Normal M8 OT- IP Objective Assessments Start: 05/03/19 14:43 Freq: Status: Active Protocol: Document 05/03/19 14:43 CGR (Rec: 05/03/19 15:16 CGR [email or web address]) OT Gross Range of Motion Upper Extremity Range of Motion Assessment Within Functional Limits OT Strength Upper Extremity Strength Assessment Within Functional Limits OT- Coordination Assessment Upper Extremity Finger to Nose Test Within Functional Limits Finger Tapping Test Within Functional Limits OT-Muscle Tone Assessment Muscle Tone WNL Yes OT Sensation Assessment Edema Edema Absent M9 OT- IP Assessment and Plan Start: 05/03/19 14:43 Freq: Status: Active Protocol: Document 05/03/19 14:43 CGR (Rec: 05/03/19 15:16 CGR [email or web address]) OT Summary Assessment and Plan Potential Rehabilitation Potential Excellent Analytic Complexity at Evaluation Low Summary OT Impairments Functional Mobility,Dressing, Toileting,Bathing,Toilet Transfers,Shower Transfers Progress Towards Goals Slow Progress due to Pain Assessment Summary Pt presents as a low complexity evaluation s/p recent L TKA readmitted with fever. Pt presents with declines to functional mobility and ADLs. Pt will benefit from continued OT services to address declines. Recommend d/c to home with family when medically stable. Goals Dressing Goal Independent,Dressing Stick, Long Handled Shoe Horn,Conciliator ,Sock Aid Toileting Goal Independent Bathing Goal Independent Toilet Transfer Goal Independent Shower Transfer Goal Independent,Shower Chair Days to Meet Goals 5 Frequency of Treatment Frequency Of Treatment Once a Day Treatment Plan OT Treatment Plan ADL Training,Functional Mobility,Patient/Family Education,Discharge Planning Discharge Recommendations OT Discharge Recommendations Home with Assistance Home Equipment Needs Pt has all necessary equipment at this time.
--- NOTE | 2019-05-03 15:24 | P.PN_ITS ---
Subjective Subjective Date Patient Seen: 05/03/19 Interval history: Gema Bryan is a 68-year-old female patient with a past medical history significant for hypertension, hyperlipidemia, TIA, diabetes mellitus type 2, insulin using, migraine headaches and osteoarthritis who presented to the ED with worsening knee pain, swelling, redness and fever. The patient is resting in bed and appears slightly uncomfortable with chills and rigors. She continues to have significant pain with palpation around her left knee joint and medial aspect with erythema and streaking up to groin which was outlined and photographed. She was unable to move her left leg yesterday and had to have her daughter's lift her leg for her. She is now able to move her left leg slightly and reports the redness and swelling have improved. Venous Doppler ultrasound was negative for DVT. She denies any genitourinary symptoms including urinary frequency, hesitancy or urgency, dysuria, suprapubic fullness or tenderness, or CVA/flank pain. She has not been confused. Urinalysis identifies bacteria which represents asymptomatic bacteriuria. She has had no upper respiratory tract symptoms. Chest x-ray was negative. Respiratory PCR negative. She has no other complaints and denies headache, ear pain, rhinitis, sore throat, cough, shortness of breath, chest pain, abdominal pain, nausea, vomiting, dysuria, diarrhea or constipation. She is voiding and eliminating without difficulty. Plan to work with physical and occupational therapy today. Exam Vital Signs (past 8 hours): - 05/03/19 08:00 05/03/19 08:51 05/03/19 12:00 Temperature 97.8 F 97.8 F Pulse Rate 90 87 Respiratory Rate 16 16 Blood Pressure 133/73 141/69 H Pulse Oximetry 97 97 98 Oxygen Delivery Method Room Air Narrative Exam Narrative: General: Older female sitting in bed, appears uncomfortable with chills and rigors, well-developed, well-nourished, appropriately interactive. HEENT: Normocephalic, atraumatic. External ears without defect. Pupils equal, round, and reactive to light. Anicteric sclerae, moist conjunctivae, and no lid lag. Neck: Supple with full range of motion. No jugular venous distension. No lymphadenopathy or thyromegaly. Cardiovascular: Regular rate and rhythm without murmurs, rubs, or gallops appreciated. Pulmonary: Clear to auscultation bilaterally without crackles, wheezes, or rhonchi. Normal respiratory effort with no use of accessory muscles. Abdomen: Soft, bowel sounds present, nontender, nondistended. No hepatosplenomegaly or masses appreciated. Extremities: No clubbing, cyanosis, or edema of right lower extremity. Left lower extremity with mild edema surrounding left knee joint, erythema medial to left knee extending/streaking to groin now outlined, significant tenderness to palpation along area of streaking to the knee. Skin: Normal temperature, turgor, and texture; no rash, ulcers, or subcutaneous nodules appreciated. Neurological: Cranial nerves grossly intact. Psychiatric: Normal mood and affect. Alert and oriented to person, place, and time. Objective Labs Result Diagrams: 05/03/19 05:45 05/03/19 05:45 Labs: Laboratory Results - last 24 hr 05/02/19 05/02/19 05/02/19 21:50 21:50 21:50 WBC 11.1 H RBC 3.64 L Hgb 10.8 L Hct 32.2 L MCV 88.4 MCH 29.7 MCHC 33.7 RDW 13.5 Plt Count 226 Neut % (Auto) 73.1 Lymph % (Auto) 15.1 L [place] % (Auto) 10.4 Eos % (Auto) 0.5 L Baso % (Auto) 0.9 Neut # (Auto) 8100 H Lymph # (Auto) 1700 [place] # (Auto) 1200 H Eos # (Auto) 100 Baso # (Auto) 100 ESR Sodium 136 L Potassium 3.7 Chloride 100 Carbon Dioxide 28 BUN 16 Creatinine 0.60 Estimated GFR > 60.0 BUN/Creatinine Ratio 26.7 H Glucose 175 H Lactate Calcium 9.4 Total Bilirubin 0.6 AST 19 ALT 11 Alkaline Phosphatase 59 C-Reactive Protein Total Protein 7.7 Albumin 3.8 Globulin 3.9 Albumin/Globulin Ratio 1.0 Procalcitonin 0.10 Urine RBC Urine WBC Ur Squamous Epith Cells Urine Bacteria Ur Culture Indicated? Fluid Color Fluid Appearance Fluid RBC Fld Tot Nucleated Cell Fluid Polynuclear WBCs Fluid Mononuclear WBCs Fluid Eosinophils Fluid Other Cells Body Fluid Clot Chlamy pneumoniae PCR Adenovirus (PCR) B.parapertussis DNA PCR Coronavirus OC43 (PCR) Coronavirus HKU1 (PCR) Coronavirus 229E (PCR) Coronavirus NL63 (PCR) Human Metapneumovir PCR Influenza Type A (PCR) Influenza Type B (PCR) M. pneumoniae (PCR) Parainfluenza 1 (PCR) Parainfluenza 2 (PCR) Parainfluenza 3 (PCR) Parainfluenza 4 (PCR) RSV (PCR) Entero/Rhino (PCR) 05/02/19 05/02/19 05/02/19 21:50 21:50 21:50 WBC RBC Hgb Hct MCV MCH MCHC RDW Plt Count Neut % (Auto) Lymph % (Auto) [place] % (Auto) Eos % (Auto) Baso % (Auto) Neut # (Auto) Lymph # (Auto) [place] # (Auto) Eos # (Auto) Baso # (Auto) ESR 83 H Sodium Potassium Chloride Carbon Dioxide BUN Creatinine Estimated GFR BUN/Creatinine Ratio Glucose Lactate 1.7 Calcium Total Bilirubin AST ALT Alkaline Phosphatase C-Reactive Protein 16.0 H Total Protein Albumin Globulin Albumin/Globulin Ratio Procalcitonin Urine RBC Urine WBC Ur Squamous Epith Cells Urine Bacteria Ur Culture Indicated? Fluid Color Fluid Appearance Fluid RBC Fld Tot Nucleated Cell Fluid Polynuclear WBCs Fluid Mononuclear WBCs Fluid Eosinophils Fluid Other Cells Body Fluid Clot Chlamy pneumoniae PCR Adenovirus (PCR) B.parapertussis DNA PCR Coronavirus OC43 (PCR) Coronavirus HKU1 (PCR) Coronavirus 229E (PCR) Coronavirus NL63 (PCR) Human Metapneumovir PCR Influenza Type A (PCR) Influenza Type B (PCR) M. pneumoniae (PCR) Parainfluenza 1 (PCR) Parainfluenza 2 (PCR) Parainfluenza 3 (PCR) Parainfluenza 4 (PCR) RSV (PCR) Entero/Rhino (PCR) 05/02/19 05/03/19 05/03/19 23:52 01:14 03:25 WBC RBC Hgb Hct MCV MCH MCHC RDW Plt Count Neut % (Auto) Lymph % (Auto) [place] % (Auto) Eos % (Auto) Baso % (Auto) Neut # (Auto) Lymph # (Auto) [place] # (Auto) Eos # (Auto) Baso # (Auto) ESR Sodium Potassium Chloride Carbon Dioxide BUN Creatinine Estimated GFR BUN/Creatinine Ratio Glucose Lactate Calcium Total Bilirubin AST ALT Alkaline Phosphatase C-Reactive Protein Total Protein Albumin Globulin Albumin/Globulin Ratio Procalcitonin Urine RBC 0-1/hpf Urine WBC 0-1/hpf Ur Squamous Epith Cells 1-5 /hpf Urine Bacteria Moderate (10-30) H Ur Culture Indicated? Specimen cultured Fluid Color Red Fluid Appearance Bloody Fluid RBC [id number] Fld Tot Nucleated Cell 75285 Fluid Polynuclear WBCs 97 Fluid Mononuclear WBCs 3 Fluid Eosinophils Not Reportable Fluid Other Cells Not Reportable Body Fluid Clot No clots present Chlamy pneumoniae PCR Not detected Adenovirus (PCR) Not detected B.parapertussis DNA PCR Not detected Coronavirus OC43 (PCR) Not detected Coronavirus HKU1 (PCR) Not detected Coronavirus 229E (PCR) Not detected Coronavirus NL63 (PCR) Not detected Human Metapneumovir PCR Not detected Influenza Type A (PCR) Not detected Influenza Type B (PCR) Not detected M. pneumoniae (PCR) Not detected Parainfluenza 1 (PCR) Not detected Parainfluenza 2 (PCR) Not detected Parainfluenza 3 (PCR) Not detected Parainfluenza 4 (PCR) Not detected RSV (PCR) Not detected Entero/Rhino (PCR) Not detected 05/03/19 05/03/19 05/03/19 05:45 05:45 05:45 WBC 7.6 RBC 3.33 L Hgb 10.0 L Hct 29.3 L MCV 87.9 MCH 30.1 MCHC 34.2 RDW 13.5 Plt Count 218 Neut % (Auto) 63.9 Lymph % (Auto) 22.3 L [place] % (Auto) 11.7 Eos % (Auto) 1.6 L Baso % (Auto) 0.5 Neut # (Auto) 4800 Lymph # (Auto) 1700 [place] # (Auto) 900 Eos # (Auto) 100 Baso # (Auto) 0 ESR Sodium 139 Potassium 3.3 L Chloride 104 Carbon Dioxide 28 BUN 13 Creatinine 0.60 Estimated GFR > 60.0 BUN/Creatinine Ratio 21.7 Glucose 102 Lactate Calcium 8.7 Total Bilirubin AST ALT Alkaline Phosphatase C-Reactive Protein Total Protein Albumin Globulin Albumin/Globulin Ratio Procalcitonin 0.09 Urine RBC Urine WBC Ur Squamous Epith Cells Urine Bacteria Ur Culture Indicated? Fluid Color Fluid Appearance Fluid RBC Fld Tot Nucleated Cell Fluid Polynuclear WBCs Fluid Mononuclear WBCs Fluid Eosinophils Fluid Other Cells Body Fluid Clot Chlamy pneumoniae PCR Adenovirus (PCR) B.parapertussis DNA PCR Coronavirus OC43 (PCR) Coronavirus HKU1 (PCR) Coronavirus 229E (PCR) Coronavirus NL63 (PCR) Human Metapneumovir PCR Influenza Type A (PCR) Influenza Type B (PCR) M. pneumoniae (PCR) Parainfluenza 1 (PCR) Parainfluenza 2 (PCR) Parainfluenza 3 (PCR) Parainfluenza 4 (PCR) RSV (PCR) Entero/Rhino (PCR) Assessment & Plan Assessment & Plan narrative: Gema Bryan is a 68-year-old female patient with a past medical history significant for hypertension, hyperlipidemia, TIA, diabetes mellitus type 2, insulin using, migraine headaches and osteoarthritis who presented to the ED with worsening knee pain, swelling, redness and fever. 1. 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 Active. -The patient presented with progressive worsening left knee pain with monterroso rrounding edema, erythema with streaking to groin (painful entire length and now outlined), and inability to move her leg. SIRS criteria met including: leukocytosis (WBC 11.1), febrile (temp 100.4?), tachycardia (HR 112). Did not meet sepsis criteria. -Risk factors include status post left total knee arthroplasty, postop day 3 at onset of symptoms and diabetes. -Elevated sed rate of 83 and CRP of 16, however, this is anticipated after surgery. -Left knee x-ray demonstrate knee arthroplasty with areas of lucency overlying the soft tissues of the patella. This appears new compared to 2017. Recommend correlation to any trauma. Otherwise, infection should be considered. -Blood cultures x2 have no growth to date. -Other infections ruled out including: UTI or pulmonary infection. Urinalysis with bacteria present but patient without genitourinary symptoms, therefore, sales representative printing of asymptomatic bacteriuria. Chest x-ray and respiratory PCR negative and patient without any upper respiratory tract symptoms. -Venous Doppler ultrasound negative for DVT. -Orthopedic surgery has been consulted and Dr. cornell performed a left knee aspiration which appeared to be a traumatic tap with fluid analysis demonstrated high PMNs 97% and Gram stain with many WBC without organisms and fluid culture pending. -Received clindamycin 900 mg IV x1 in the ED. Continue clindamycin 900 mg every 6 hours and levofloxacin 750 mg daily. -Ordered physical and occupational therapy evaluation and treatment, pending. -Continue acetaminophen 975 mg 3 times daily as needed for mild pain and oxycodone 5-325 mg every 4 hours as needed for moderate to severe pain. 2. Diabetes mellitus type II, present on admission. -Hemoglobin A1c 7.4% on 04/02/2019. -Continue home Lantus 70 units daily and 30 units daily at bedtime. -Continue [facility] blood glucose checks and medium dose correctional scale insulin. -Continue carbohydrate consistent/heart healthy diet. 3. Hypertension, chronic, present on admission. Stable. -Continue home lisinopril 5 mg daily. 4. Hyperlipidemia, chronic, present on admission. Stable. -Continue home simvastatin 20 mg daily at bedtime. Disposition: Patient will be admitted for several days until wound cultures have resulted and there is a clear treatment plan.
[2019-05-03 16:12] LABS: Culture Indicated Urine Specimen Cultured
--- NOTE | 2019-05-03 17:07 | PT-IP ANOTE ---
Physical therapy order received. Pt unavailable for eval at this time. She has been up with nursing and fWW today.Will see pt tomorrow for evaluation.
[2019-05-03] MEDS: OXYCODONE IR 5 MG TABLET PO (17:31)
[2019-05-03] MEDS: INSULIN GLARGINE 100 UNIT/ML 3ML PEN 30 UNIT SUBCUT (20:43)
[2019-05-03] MEDS: DOCUSATE 100 MG CAPSULE PO (20:43)
[2019-05-03] MEDS: SIMVASTATIN 20 MG TABLET PO (20:44)
[2019-05-04] VITALS (8 sets, daily range): BP systolic 123–160; BP diastolic 52–70; PULSE 82–103; RESP 16–18; TEMP 36.5–37.9; O2SAT 95–99
[2019-05-04] MEDS: levoFLOXacin 750 MG/150 ML PIGGYBACK 100 MG IV (03:15)
[2019-05-04 06:03] LABS: Add Manual Diff / Slide Review NO; Basophils Absolute Auto 100 /uL (0-100); Basophils Percent Auto 0.9 % (0-2); Eosinophils Absolute Auto 200 /uL (0-450); Eosinophils Percent Auto 3.6 % (2-4); Hematocrit 29.7 % (36-46); Hemoglobin 10.2 g/dL (12.0-16.0); Lymphocytes Absolute Auto 1300 /uL (1100-4500); Lymphocytes Percent Auto 19.4 % (25-40); Mean Corpuscular HGB Conc 34.3 % (30-36); Mean Corpuscular Hemoglobin 30.4 PG (26-34); Mean Corpuscular Volume 88.5 fL (80-100); Monocytes Absolute Auto 800 /uL (0-900); Monocytes Percent Auto 12.2 % (3-14); Neutrophils Absolute Auto 4300 /uL (1500-7000); Neutrophils Percent Auto 63.9 % (50-75); Platelet Count 228 X10^3/uL (150-400); Red Blood Cell Count 3.36 X10^6/uL (4.0-5.2); Red Cell Distribution Width 13.7 % (11.6-14.8); White Blood Cell Count 6.7 X10^3/uL (4.5-11.0)
[2019-05-04 06:10] LABS: Blood Urea Nitrogen 12 mg/dL (7-17); Calcium 8.8 mg/dL (8.4-10.2); Carbon Dioxide 28 mmol/L (22-32); Chloride 106 mmol/L (98-107); Estimated Glomerular Filt Rate > 60.0 mL/min (>60); Glucose 72 mg/dL (80-110); HEMOLYSIS < 15 (0-50); Magnesium 1.6 mg/dL (1.6-2.3); Potassium 3.8 mmol/L (3.4-5.1); Sodium 140 mmol/L (137-145)
[2019-05-04 06:26] LABS: Procalcitonin 0.05 ng/mL (<0.5)
[2019-05-04] MEDS: LISINOPRIL 5 MG TABLET PO (08:58)
[2019-05-04] MEDS: ASPIRIN EC 81 MG TABLET PO (08:58)
[2019-05-04] MEDS: ACETAMINOPHEN 325 MG TABLET 975 MG PO ×2 (08:58→17:33)
[2019-05-04] MEDS: INSULIN GLARGINE 100 UNIT/ML 3ML PEN 70 UNIT SUBCUT (08:59)
[2019-05-04] MEDS: ENOXAPARIN 40 MG/0.4 ML SYRINGE SUBCUT (08:59)
--- NOTE | 2019-05-04 09:01 | P.PN_ITS ---
Subjective Subjective Date Patient Seen: 05/04/19 Time Patient Seen: 09:02 Interval history: She is doing well. Her knee is feeling better and the swelling is going down. Exam Vital Signs (past 8 hours): - 05/04/19 04:29 05/04/19 08:00 Temperature 97.7 F 97.9 F Pulse Rate 92 H 90 Respiratory Rate 16 18 Blood Pressure 132/62 138/70 Pulse Oximetry 95 98 Oxygen Delivery Method Room Air Const Orientation: alert and oriented x3 Extrem Other: Left knee, decreased swelling. Significant skin reaction to the adhesive from her bandage, but the incision itself is clean and without erythema or drainage. Objective Labs Result Diagrams: 05/04/19 05:50 05/04/19 05:50 Labs: Laboratory Results - last 24 hr 05/03/19 05/04/19 05/04/19 01:14 05:50 05:50 WBC 6.7 RBC 3.36 L Hgb 10.2 L Hct 29.7 L MCV 88.5 MCH 30.4 MCHC 34.3 RDW 13.7 Plt Count 228 Neut % (Auto) 63.9 Lymph % (Auto) 19.4 L [place] % (Auto) 12.2 Eos % (Auto) 3.6 Baso % (Auto) 0.9 Neut # (Auto) 4300 Lymph # (Auto) 1300 [place] # (Auto) 800 Eos # (Auto) 200 Baso # (Auto) 100 Sodium Potassium Chloride Carbon Dioxide BUN Creatinine Estimated GFR BUN/Creatinine Ratio Glucose Calcium Magnesium Procalcitonin 0.05 Ur Culture Indicated? Specimen cultured 05/04/19 05:50 WBC RBC Hgb Hct MCV MCH MCHC RDW Plt Count Neut % (Auto) Lymph % (Auto) [place] % (Auto) Eos % (Auto) Baso % (Auto) Neut # (Auto) Lymph # (Auto) [place] # (Auto) Eos # (Auto) Baso # (Auto) Sodium 140 Potassium 3.8 Chloride 106 Carbon Dioxide 28 BUN 12 Creatinine 0.50 L Estimated GFR > 60.0 BUN/Creatinine Ratio 24.0 H Glucose 72 L Calcium 8.8 Magnesium 1.6 Procalcitonin Ur Culture Indicated? Assessment & Plan Post-op Postoperative Postoperative status narrative: The knee aspirate had a 22,000 white count, indicating inflammation but no infection. There is also been no growth from this. I see no sign of surgical site infection. We are waiting on cultures to grow from her urine as this appeared to be the source from her urinalysis. She can be discharged home when this is stable.
--- NOTE | 2019-05-04 11:02 | PT.IIE ---
Surgical History (Last Reviewed 05/03/19 @ 03:04 by LINDA Pedro) History of arthroplasty of right knee (Acute 04/26/17) History of section (Acute) History of strabismus surgery (Acute ~1975) Hx of appendectomy (Acute ~1976) Hx of hernia repair (Acute) Medical History (Last Reviewed 05/03/19 @ 03:04 by LINDA Pedro) Anxiety (Acute) Diabetes (Acute) Elbow fracture, right (Acute 03/05/18) Hyperlipidemia (Acute) Hypertension (Acute) Migraines (Acute) Pneumonia (Acute) Shoulder fracture, right (Acute ~2012) Syncope (Acute ~2012) Physical Therapy Inpatient Evaluation/Re-Eval M1 PT/OT-IP Prior Functional Status Start: 05/03/19 14:43 Freq: NEEDED Status: Active Protocol: Document 05/04/19 10:45 AW (Rec: 05/04/19 11:01 AW [id number]) Medical Review Prior Functional Status Medical History Reviewed Yes Diet/Fluid Consistency Regular Communication Pt is able to communicate effectively. Mobility and Gait Pt was IND in all mobility prior to recent sx. Activities of Daily Living and IADL's Pt was IND in all ADLs and IADLs prior to recent sx. Per pt, her family sometimes did the grocery shopping for her. Prior Functional Level (Other details) Pt reports 2 injurious falls in past year - one with nasal bone fracture and one with elbow fracture. Social History Household Members children Living Arrangements House Number of Floors (Floors) Two Floors Number of Stairs To Enter/Railing? 3 steps to enter with B railings. Pts room and full bath are on the second floor. After recent hospital discharge, pt was staying on main level and sleeping in a recliner with no need to access 2nd level. Home Environment Standard Height Toilet,Tub/ Shower Home Equipment Front Wheel Walker,Four Wheel Walker,Straight Cane,Raised Toilet Seat w/Armrests,Tub Transfer Bench,Hand Held Shower Employment Status Retired Additional Social History Comment Pt lives with her 2 adult daughters and grandchildren. M2 PT-IP Current Condition Start: 05/03/19 08:40 Freq: NEEDED Status: Active Protocol: Document 05/04/19 10:45 AW (Rec: 05/04/19 11:01 AW [id number]) Physical Therapy Current Condition Current Condition Evaluation Date 05/04/19 Treatment Diagnosis s/p left TKA 04/29/19 with pain , swelling, difficulty walking Onset Date 05/02/19 Weight Bearing Status Weight Bearing Status Full Weight Bearing M3 PT-IP Subjective Start: 05/03/19 08:40 Freq: NEEDED Status: Active Protocol: Document 05/04/19 10:45 AW (Rec: 05/04/19 11:01 AW [id number]) Subjective Physical Therapy Visit Type Type Initial Evaluation Visit Start Time 09:00 Visit Stop Time 09:26 Total Visit Minutes 26 Number of EMPLOYEE BENEFITS DIRECTOR Visits 0 Physical Therapy Visit Comments Patient Comments Pt encountered sitting up in chair, willing to work with PT Patient Goals Pt wishes to return home with assist from her children who live with her. Therapy Pain Assessment Pain When Pain Assessed During Mobility Pain Present Pain Present Pain Reported Location left leg Intensity 5 Scale Used Numeric (1 - 10) Description Sharp M4 PT-IP Mobility and Gait Start: 05/03/19 08:40 Freq: NEEDED Status: Active Protocol: Document 05/04/19 10:45 AW (Rec: 05/04/19 11:01 AW [id number]) PT-Transfer Assessment Sit to and From Stand Sit to and from Stand Minimal Assistance Equipment Transfer Assistive Device Gait Belt,Front Wheeled Walker Transfers Transfer Destination Chair Transfer Ability Level of Assist Contact Guard Assistance Comments Mobility Comments Pt required min A to stand from chair. She manages the FWW safely. Gait Assessment Gait Gait Assistance Required: Standby Assistance,Contact Guard Assist,1 Person Assist Distance (Feet) 30 Able to Maintain Weight Bearing Status Yes During Gait Assistive Devices Assistive Device Gait Belt,Front Wheeled Walker Orthotic/Prosthetic Devices or Brace: No Gait Deviations General Gait Pattern Antalgic,Decreased Stride Length,Step-to Gait Factors Limiting Gait Function Factors Limiting Gait Function Decreased Activity Tolerance, Decreased Strength,Limited Range of Motion,Pain Comments Gait Comments Pt ambulated with FWW from chair to short distance out of room. She required SBA to CGA for steadiness, possibly related to fear of falling PT-Balance Assessment Sitting Balance and Reactions Static Sitting Balance Ability Normal Dynamic Sitting Balance Ability Normal Standing Balance and Reactions Static Standing Balance Ability Good Dynamic Standing Balance Ability Fair Device Used FWW M5 PT-IP Objective Assessments Start: 05/03/19 08:40 Freq: NEEDED Status: Active Protocol: Document 05/04/19 10:45 AW (Rec: 05/04/19 11:01 AW [id number]) Orientation Orientation/Cognition Level of Alertness Alert Orientation Name,Age,Birthday,Month,Date, Year,Day of Week,Place, Situation Language Function Ability No Deficits Noted Safety Awareness Understands Safety Issues Memory Description No Deficits Noted Gross Range of Motion Upper Extremity ROM Assessment Within Functional Limits Lower Extremity ROM Assessment Left Impaired Impairments Left knee is edematous and painful, lacking ~10 degrees extension. Flexion tolerated to ~45 degrees. Strength Upper Extremity Strength Assessment Within Functional Limits Lower Extremity Strength Assessment Left Impaired Comments Strength Comments Unable to assess LLE. Coordination Assessment Gross Coordination Gross Coordination WNL Sensation Assessment Sensation Gross Sensation Left LE Impaired Light Touch Impaired Sensation Description Paresthesia Comments Sensation Comments Pt reports paresthesia at left lateral knee. M7 PT-IP Assessment and Plan Start: 05/03/19 08:40 Freq: NEEDED Status: Active Protocol: Document 05/04/19 10:45 AW (Rec: 05/04/19 11:01 AW [id number]) PT Summary Assessment and Plan Potential Rehabilitation Potential Good Status of Condition at Evaluation Evolving Summary Impairments Pain,ROM,Strength,Balance, Sensation,Transfers,Gait, Activity Tolerance Assessment Summary Pt is a 68 yo woman readmitted with left knee pain and swelling following TKA 04/29/19 . Left knee joint cultures pending. Pt reports she is using FWW and 4WW full-time since surgery and is living on her main level with no need to access second level. She presents with painful left knee ROM, impaired strength, impaired gait, and impaired activity tolerance secondary to pain. Pt will benefit from skilled therapy to address these impairments and to plan for safe discharge to home environment. PT recommends home health services when pt medically cleared for discharge. Goals Bed Mobility Goal Independent Transfer Goal Independent Gait Goal Standby Assistance Gait Distance 75 feet Other Goals Pt to ascend/descend 3 steps with bilateral rails SBA for safe home access. Frequency of Treatment Frequency Of Treatment Twice a Day Treatment Plan Physical Therapy Treatment Plan Bed Mobility Training,Transfer Training,Gait Training, Therapeutic Exercise,Balance Retraining,Post Op Education, Discharge Planning,Hot or Cold Pack,Neuromuscular Re-ed, Coordination Retraining,Manual Therapy Recommendations To Nursing Amount of Assist Needed 1 Person Assist Discharge Recommendations PT Discharge Recommendations Home with Assistance,Home Health
--- NOTE | 2019-05-04 11:22 | P.PN_ITS ---
Subjective Subjective Date Patient Seen: 05/04/19 Time Patient Seen: 11:23 Interval history: Gema Bryan is a 68-year-old female patient with a past medical history significant for hypertension, hyperlipidemia, TIA, diabetes mellitus type 2, insulin using, migraine headaches and osteoarthritis who presented to the ED with worsening knee pain, swelling, redness and fever. The patient is resting in bed and appears much improved this morning. Her pain is controlled today with medications and her swelling has improved. She complains of itchiness due to an allergic reaction from the bandage. Orthopedic surgery does not believe there to be an infection in her knee joint at this time. She denies any fevers, chills today. There is no cough. She denies dysuria today or previously and had no urinary frequency. Exam Vital Signs (past 8 hours): - 05/04/19 04:29 05/04/19 08:00 Temperature 97.7 F 97.9 F Pulse Rate 92 H 90 Respiratory Rate 16 18 Blood Pressure 132/62 138/70 Pulse Oximetry 95 98 Oxygen Delivery Method Room Air Narrative Exam Narrative: GENERAL APPEARANCE: Well developed, well nourished, in no acute distress. SKIN: There is a well circumscribed erythematous rash localized to the area over her left knee where a previous bandage was placed. Previously marked erythema has since resolved. HEENT: The sclerae were anicteric and conjunctivae were pink and moist. Extraocular movements were intact and pupils were equal, round with normal accommodation. External inspection of the ears and nose showed no scars, lesions, or masses. Lips, teeth, and gums showed normal mucosa. The oral mucosa, hard and soft palate, tongue and posterior pharynx were unremarkable. NECK: Supple and symmetric. There was no thyroid enlargement, and no tenderness, or masses were felt. CHEST: Normal AP diameter and normal contour without any kyphoscoliosis. LUNGS: Auscultation of the lungs revealed no wheezes, rhonchi, or rales. CARDIOVASCULAR: There was a regular rate and rhythm without any murmurs, gallops, rubs. Peripheral pulses were 2+ and symmetric. ABDOMEN: Soft and nontender with normal bowel sounds. No ascites was noted. MUSCULOSKELETAL: There was no tenderness to the L knee today. There is mild swelling around the L knee Muscle strength and tone were normal. EXTREMITIES: No cyanosis, clubbing or edema. NEUROLOGIC: Alert and oriented x 3. Normal affect. Gait was normal. Strength is +5/5 in the Upper Extremities and Lower Extremities Bilaterally. Sensation to touch was normal. Objective Labs Result Diagrams: 05/04/19 05:50 05/04/19 05:50 Labs: Laboratory Results - last 24 hr 05/03/19 05/04/19 05/04/19 01:14 05:50 05:50 WBC 6.7 RBC 3.36 L Hgb 10.2 L Hct 29.7 L MCV 88.5 MCH 30.4 MCHC 34.3 RDW 13.7 Plt Count 228 Neut % (Auto) 63.9 Lymph % (Auto) 19.4 L [place] % (Auto) 12.2 Eos % (Auto) 3.6 Baso % (Auto) 0.9 Neut # (Auto) 4300 Lymph # (Auto) 1300 [place] # (Auto) 800 Eos # (Auto) 200 Baso # (Auto) 100 Sodium Potassium Chloride Carbon Dioxide BUN Creatinine Estimated GFR BUN/Creatinine Ratio Glucose Calcium Magnesium Procalcitonin 0.05 Ur Culture Indicated? Specimen cultured 05/04/19 05:50 WBC RBC Hgb Hct MCV MCH MCHC RDW Plt Count Neut % (Auto) Lymph % (Auto) [place] % (Auto) Eos % (Auto) Baso % (Auto) Neut # (Auto) Lymph # (Auto) [place] # (Auto) Eos # (Auto) Baso # (Auto) Sodium 140 Potassium 3.8 Chloride 106 Carbon Dioxide 28 BUN 12 Creatinine 0.50 L Estimated GFR > 60.0 BUN/Creatinine Ratio 24.0 H Glucose 72 L Calcium 8.8 Magnesium 1.6 Procalcitonin Ur Culture Indicated? Assessment & Plan Assessment & Plan narrative: Gema Bryan is a 68-year-old female patient with a past medical history significant for hypertension, hyperlipidemia, TIA, diabetes mellitus type 2, insulin using, migraine headaches and osteoarthritis who presented to the ED with worsening knee pain, swelling, redness and fever. 1. Possible post-operative cellulitis, Active. -The patient presented with progressive worsening left knee pain with surrounding edema, erythema with streaking to groin (painful entire length and now outlined), and inability to move her leg. SIRS criteria met including: leukocytosis (WBC 11.1), febrile (temp 100.4?), tachycardia (HR 112). Did not meet sepsis criteria. -Risk factors include status post left total knee arthroplasty, postop day 3 at onset of symptoms and diabetes. -Elevated sed rate of 83 and CRP of 16, however, this is anticipated after surgery. -Left knee x-ray demonstrate knee arthroplasty with areas of lucency overlying the soft tissues of the patella. This appears new compared to 2017. Recommend correlation to any trauma. Otherwise, infection should be considered. -Blood cultures x2 have no growth to date. -Other infections ruled out including: UTI or pulmonary infection. Urinalysis with bacteria present but patient without genitourinary symptoms, therefore, sales representative publications of asymptomatic bacteriuria. Chest x-ray and respiratory PCR negative and patient without any upper respiratory tract symptoms. -Venous Doppler ultrasound negative for DVT. -Orthopedic surgery has been consulted and Dr. cornell performed a left knee aspiration which appeared to be a traumatic tap with fluid analysis demonstrated high PMNs 97% and Gram stain with many WBC without organisms and fluid culture pending. -Received clindamycin 900 mg IV x1 in the ED. Continue clindamycin 900 mg every 6 hours and levofloxacin 750 mg daily. -Ordered physical and occupational therapy evaluation and treatment, pending. -Continue acetaminophen 975 mg 3 times daily as needed for mild pain and oxycodone 5-325 mg every 4 hours as needed for moderate to severe pain. 2. Diabetes mellitus type II, present on admission. -Hemoglobin A1c 7.4% on 04/02/2019. -Continue home Lantus 70 units daily and 30 units daily at bedtime. -Continue ACHS blood glucose checks and medium dose correctional scale insulin. -Continue carbohydrate consistent/heart healthy diet. 3. Hypertension, chronic, present on admission. Stable. -Continue home lisinopril 5 mg daily. 4. Hyperlipidemia, chronic, present on admission. Stable. -Continue home simvastatin 20 mg daily at bedtime. Disposition: Remains inpatient pending cultures as above.
[2019-05-04] MEDS: diphenhydrAMINE 25 MG TABLET PO ×2 (11:27→19:21)
[2019-05-04] MEDS: OXYCODONE IR 5 MG TABLET PO ×2 (11:27→19:18)
[2019-05-04] MEDS: CLINDAMYCIN 900 MG/50 ML PIGGYBACK 50 MG IV ×2 (11:31→19:21)
--- NOTE | 2019-05-04 16:11 | PT.IPTN ---
Current Diagnoses Cellulitis of left lower limb (05/03/19) Physical Therapy Treatment Note M2 PT-IP Current Condition Start: 05/03/19 08:40 Freq: NEEDED Status: Active Protocol: Document 05/04/19 10:45 AW (Rec: 05/04/19 11:01 AW [id number]) Physical Therapy Current Condition Current Condition Evaluation Date 05/04/19 Treatment Diagnosis s/p left TKA 04/29/19 with pain , swelling, difficulty walking Onset Date 05/02/19 Weight Bearing Status Weight Bearing Status Full Weight Bearing M3 PT-IP Subjective Start: 05/03/19 08:40 Freq: NEEDED Status: Active Protocol: Document 05/04/19 16:00 AW (Rec: 05/04/19 16:10 AW [id number]) Subjective Physical Therapy Visit Type Type Treatment Note Visit Start Time 15:33 Visit Stop Time 15:56 Total Visit Minutes 23 Number of MEDICAL RECEPTIONIST MEDICAL ASSISTANT Visits 0 Physical Therapy Visit Comments Patient Comments Pt resting in bed, pain well- controlled, willing to work with PT Therapy Pain Assessment Pain When Pain Assessed During Mobility Pain Present Pain Present Pain Reported Location left leg Intensity 4 Scale Used Numeric (1 - 10) Description Sharp M4 PT-IP Mobility and Gait Start: 05/03/19 08:40 Freq: NEEDED Status: Active Protocol: Document 05/04/19 16:00 AW (Rec: 05/04/19 16:10 AW [id number]) PT-Bed Mobility Assessment Supine to Sit Supine to Sit Minimal Assistance Scooting Scooting to Edge of Bed Standby Assistance PT-Transfer Assessment Sit to and From Stand Sit to and from Stand Contact Guard Assistance Equipment Transfer Assistive Device Gait Belt,Front Wheeled Walker Transfers Transfer Destination Chair Transfer Ability Level of Assist Contact Guard Assistance Comments Mobility Comments Pt required decreased level of assist to stand using FWW Gait Assessment Gait Gait Assistance Required: Standby Assistance,Contact Guard Assist,1 Person Assist Distance (Feet) 220 Able to Maintain Weight Bearing Status Yes During Gait Assistive Devices Assistive Device Gait Belt,Front Wheeled Walker Orthotic/Prosthetic Devices or Brace: No Gait Deviations General Gait Pattern Antalgic,Decreased Stride Length,Step-to Gait Factors Limiting Gait Function Factors Limiting Gait Function Decreased Activity Tolerance, Decreased Strength,Limited Range of Motion,Pain Comments Gait Comments Pt feels more confident walking this afternoon, requiring decreased assist with much longer gait distance . M5 PT-IP Objective Assessments Start: 05/03/19 08:40 Freq: NEEDED Status: Active Protocol: Document 05/04/19 10:45 AW (Rec: 05/04/19 11:01 AW [id number]) Orientation Orientation/Cognition Level of Alertness Alert Orientation Name,Age,Birthday,Month,Date, Year,Day of Week,Place, Situation Language Function Ability No Deficits Noted Safety Awareness Understands Safety Issues Memory Description No Deficits Noted Gross Range of Motion Upper Extremity ROM Assessment Within Functional Limits Lower Extremity ROM Assessment Left Impaired Impairments Left knee is edematous and painful, lacking ~10 degrees extension. Flexion tolerated to ~45 degrees. Strength Upper Extremity Strength Assessment Within Functional Limits Lower Extremity Strength Assessment Left Impaired Comments Strength Comments Unable to assess LLE. Coordination Assessment Gross Coordination Gross Coordination WNL Sensation Assessment Sensation Gross Sensation Left LE Impaired Light Touch Impaired Sensation Description Paresthesia Comments Sensation Comments Pt reports paresthesia at left lateral knee. M7 PT-IP Assessment and Plan Start: 05/03/19 08:40 Freq: NEEDED Status: Active Protocol: Document 05/04/19 16:00 AW (Rec: 05/04/19 16:10 AW [id number]) PT Summary Assessment and Plan Summary Impairments Pain,ROM,Strength,Balance, Sensation,Transfers,Gait, Activity Tolerance Assessment Summary Pt has greater confidence in her ambulation this session. She continues to walk slowly and with step-to pattern. When cued for step-through, she is able, but reverts back to step-to when attention is challenged. PT continues to recommend home health services at discharge, but will continue to assess for pt ability to attend outpatient PT. Goals Bed Mobility Goal Independent Transfer Goal Independent Gait Goal Standby Assistance Gait Distance 75 feet Other Goals Pt to ascend/descend 3 steps with bilateral rails SBA for safe home access. Frequency of Treatment Frequency Of Treatment Twice a Day Treatment Plan Physical Therapy Treatment Plan Bed Mobility Training,Transfer Training,Gait Training, Therapeutic Exercise,Balance Retraining,Post Op Education, Discharge Planning,Hot or Cold Pack,Neuromuscular Re-ed, Coordination Retraining,Manual Therapy Other Recommendations and Next Treatment plan to trial stairs at next Focus session Recommendations To Nursing Amount of Assist Needed 1 Person Assist Discharge Recommendations PT Discharge Recommendations Home with Assistance,Home Health,Outpatient PT
[2019-05-04] MEDS: INSULIN GLARGINE 100 UNIT/ML 3ML PEN 30 UNIT SUBCUT (16:57)
--- NOTE | 2019-05-04 18:20 | PC.NURSE ---
Addendum entered by Hillary Bryant R.N. 05/04/19 23:43: Up in chair for much of shift. Commode use with assist x 1. Family has visited this evening shift. Oxycodone to manage pain. Tylenol for elevated temp. Taking oral foods and fluids well. IV fluids infusing without difficulty to right hand iv site as per emar. Original Note: Pt up ambulatory in hallway with P.T. @ beginning of shift. Up in recliner for evening meal. Refuses offer for pain meds to manage left knee pain. Left knee with erythemic, raised skin in outline of previous dressing. Incision is open to air. Covered with bulky 4 x 4's and preston wrap as per dayshift reported orders by . Pt is tremulous and c/o feeling cold. Temp 99.8 and pt given tylenol to treat. Breath sounds are clear throughout. Returned to bed with assistance x 1 following evening meal. SCD on RLE. Encouraged to call for needs.
[2019-05-04] MEDS: SIMVASTATIN 20 MG TABLET PO (21:51)
[2019-05-04] MEDS: DOCUSATE 100 MG CAPSULE PO (21:51)
[2019-05-04] MEDS: INSULIN ASPART 100 UNIT/ML INSULN PEN SUBCUT (21:52)
[2019-05-04] MEDS: SODIUM CHLORIDE 0.9% 1,000 ML 100 ML IV (21:54)
[2019-05-05] VITALS (7 sets, daily range): BP systolic 134–142; BP diastolic 76–90; PULSE 80–91; RESP 14–18; TEMP 36.8–37; O2SAT 95–99
[2019-05-05] MEDS: OXYCODONE IR 5 MG TABLET PO ×3 (01:04→14:20)
[2019-05-05] MEDS: ACETAMINOPHEN 325 MG TABLET 975 MG PO ×2 (01:04→14:20)
[2019-05-05] MEDS: diphenhydrAMINE 25 MG TABLET PO ×2 (01:05→07:04)
--- NOTE | 2019-05-05 01:25 | PC.NURSE ---
Upper Stitcher Note: 0030: Awake, resting in bed. Vital signs stable. IV in rt lower hand is positional but patent at this time, with NS infusing at 100cc/hr. Lt leg elevated on pillow; dressing to lower leg intact with preston wrap, and no tape. Redness to lt inner thigh receeding from ink margin. SCD to rt leg remains on. 0110: Medicated with Benadryl, Oxycodone, and Tylenol for pain.
[2019-05-05] MEDS: levoFLOXacin 750 MG/150 ML PIGGYBACK 100 MG IV (03:11)
[2019-05-05] MEDS: CLINDAMYCIN 900 MG/50 ML PIGGYBACK 50 MG IV ×2 (03:47→12:28)
--- NOTE | 2019-05-05 07:44 | PM.PNPO.1 ---
Subjective Subjective Date Patient Seen: 05/05/19 Time Patient Seen: 07:44 Interval history: She is doing well. Pain is improving in the knee. Exam Vital Signs (past 8 hours): - 05/05/19 00:25 05/05/19 00:30 05/05/19 03:05 Temperature 98.2 F 98.6 F Pulse Rate 80 89 Respiratory Rate 14 16 Blood Pressure 138/77 138/90 Pulse Oximetry 98 98 95 Oxygen Delivery Method Room Air Oxygen Flow Rate 0 Const Orientation: alert and oriented x3 Back/Spine/Pelvis Other: Incision CDI. Significant erythema around the surrounding soft tissue from the reaction to her Aquacel dressing. Able to lift up her leg independently. Objective Labs Result Diagrams: 05/04/19 05:50 05/04/19 05:50 Assessment & Plan Post-op Postoperative Postoperative status narrative: Her knee is improving. Still waiting on final culture results with sensitivities but she is growing out Enterococcus from her urine. Stable from an orthopedic perspective. Only waiting on final culture results and should be fine for discharge home.
--- NOTE | 2019-05-05 07:48 | PM.PREOP ---
Pre-operative Note Interval Note History & Physical reviewed/Exam performed by Physician: Yes Changes to H&P: No
--- NOTE | 2019-05-05 07:49 | PM.PN.1 ---
Subjective Subjective Date Patient Seen: 05/05/19 Time Patient Seen: 07:49 Interval history: She is stable. Pain is tolerable at rest when not moving in bed. Exam Vital Signs (past 8 hours): - 05/05/19 00:25 05/05/19 00:30 05/05/19 03:05 Temperature 98.2 F 98.6 F Pulse Rate 80 89 Respiratory Rate 14 16 Blood Pressure 138/77 138/90 Pulse Oximetry 98 98 95 Oxygen Delivery Method Room Air Oxygen Flow Rate 0 Const Orientation: alert and oriented x3 Back/Spine/Pelvis Other: 5/5 motor both lower extremities except for 4/5 bilateral hip flexors Objective Labs Result Diagrams: 05/04/19 05:50 05/04/19 05:50 Assessment & Plan Assessment & Plan narrative: Her daughter is here. We again discussed surgery. We are taking her to the operating room today for T8 through L2 posterior instrumented fusion with bone graft. All questions answered.
[2019-05-05] MEDS: LISINOPRIL 5 MG TABLET PO (09:25)
[2019-05-05] MEDS: ASPIRIN EC 81 MG TABLET PO (09:26)
[2019-05-05] MEDS: ENOXAPARIN 40 MG/0.4 ML SYRINGE SUBCUT (09:26)
[2019-05-05] MEDS: INSULIN GLARGINE 100 UNIT/ML 3ML PEN 70 UNIT SUBCUT (09:26)
--- NOTE | 2019-05-05 10:54 | OT.IP.TRT ---
Current Diagnoses Cellulitis of left lower limb (05/03/19) Occupational Therapy Treatment Note M2 OT-IP Current Condition Start: 05/03/19 14:43 Freq: Status: Active Protocol: Document 05/03/19 14:43 CGR (Rec: 05/03/19 15:16 CGR [id number]) Occupational Therapy Current Condition Current Condition Evaluation Date 05/03/19 Treatment Diagnosis Fever and incision redness s/p 04/29 TKA Weight Bearing Status Weight Bearing Status Full Weight Bearing M3 OT- IP Subjective and Pain Start: 05/03/19 14:43 Freq: Status: Active Protocol: Document 05/05/19 10:50 CCC (Rec: 05/05/19 10:54 [facility] [email or web address]) OT- Subjective Occupational Therapy Visit Type Type Treatment Note Visit Start Time 09:10 Visit Stop Time 09:25 Total Visit Minutes 15 Occupational Therapy Visit Comments Patient Comments Pt a little anxious to go home . OT Pain Assessment Pain When Pain Assessed At Rest Pain Present Pain Present Denied Pain M4 OT- IP ADL's Start: 05/03/19 14:43 Freq: Status: Active Protocol: Document 05/05/19 10:50 [facility] (Rec: 05/05/19 10:54 [facility] [id number]) OT ADL-Dressing General Eval Lower Body Dressing Ability Standby Assistance Comments OT Dressing Comments Pt able to pull up brief over her hips. Pt states does have a motorized squad lieutenant she can use at home, otherwise daughter to be home to assist for all needs. OT ADL-Toileting General Evaluation Toileting Ability Standby Assistance Devices Toileting Assistive Devices Commode Comments OT Toileting Comments Pt just needing set-up for toileting needs. CGA to stand from [facility]. M5 OT- IP IADL's Start: 05/03/19 14:43 Freq: Status: Active Protocol: Document 05/03/19 14:43 CGR (Rec: 05/03/19 15:16 CGR [email or web address]) OT-Instrumental Activities of Daily Living Deficits IADL Deficits Identified Deficits Home Safety Awareness Awareness of Need for Assistance at Home Good Awareness Ability to Problem Solve Emergency Able to Problem Solve Situations Medication Management Medication Management No Deficits Identified Money Management Money Management No Deficits Identified Meal Preparation Meal Preparation Caregiver Provides Assist Mixing Place Supervisor Mixing Place Supervisor Caregiver Provides Assist Driving Driving Caregiver Provides Assist M6 OT- IP Functional Cognition Start: 05/03/19 14:43 Freq: Status: Active Protocol: Document 05/05/19 10:50 [facility] (Rec: 05/05/19 10:54 [facility] [id number]) Cognitive Factors Limiting Selfcare Function Cognitive Ability Level of Alertness Alert Patient Orientation Name,Age,Birthday,Month,Date, Year,Day of Week,Place, Situation Attention Span Ability Capable of Focused Attention, Capable of Sustained Attention Ability to Follow Commands Able to Follow Multi-Step Commands Memory Description No Deficits Noted Safety Awareness No Deficits Noted Problem Solving Ability No deficits Noted Executive Function Ability No Deficits Noted Abstract Thinking Ability No Deficits Noted Cognitive Comments Cognitive Assessment Comments Pt no deficits, at baseline. M7 OT- IP Mobility and Balance Start: 05/03/19 14:43 Freq: Status: Active Protocol: Document 05/05/19 10:50 [facility] (Rec: 05/05/19 10:54 [facility] [email or web address]) OT-Transfer Assessment Sit to and From Stand Sit to and from Stand Contact Guard Assistance Transfers Transfer Ability Standby Assistance Technique Transfer Destination Bedside Commode,Chair Devices Transfer Assistive Devices Gait Belt,Front Wheeled Walker Comments Mobility Comments CGA to stand from [facility] and then SBA with FWW to get to recliner. M8 OT- IP Objective Assessments Start: 05/03/19 14:43 Freq: Status: Active Protocol: Document 05/03/19 14:43 CGR (Rec: 05/03/19 15:16 CGR [email or web address]) OT Gross Range of Motion Upper Extremity Range of Motion Assessment Within Functional Limits OT Strength Upper Extremity Strength Assessment Within Functional Limits OT- Coordination Assessment Upper Extremity Finger to Nose Test Within Functional Limits Finger Tapping Test Within Functional Limits OT-Muscle Tone Assessment Muscle Tone WNL Yes OT Sensation Assessment Edema Edema Absent M9 OT- IP Assessment and Plan Start: 05/03/19 14:43 Freq: Status: Active Protocol: Document 05/05/19 10:50 [facility] (Rec: 05/05/19 10:54 [facility] [email or web address]) OT Summary Assessment and Plan Potential Rehabilitation Potential Excellent Analytic Complexity at Evaluation Low Summary Progress Towards Goals Progressing Toward Goals Assessment Summary Pt to be discharged home with daughters to assist for all needs. Pt has no further questions or concerns for OT needs. Goals Days to Meet Goals 1 Frequency of Treatment Frequency Of Treatment Once a Day Discharge Recommendations OT Discharge Recommendations Home with Assistance Home Equipment Needs Pt has all necessary equipment at this time.
--- NOTE | 2019-05-05 11:02 | PT.IPTN ---
Current Diagnoses Cellulitis of left lower limb (05/03/19) Physical Therapy Treatment Note M2 PT-IP Current Condition Start: 05/03/19 08:40 Freq: NEEDED Status: Active Protocol: Document 05/04/19 10:45 AW (Rec: 05/04/19 11:01 AW [id number]) Physical Therapy Current Condition Current Condition Evaluation Date 05/04/19 Treatment Diagnosis s/p left TKA 04/29/19 with pain , swelling, difficulty walking Onset Date 05/02/19 Weight Bearing Status Weight Bearing Status Full Weight Bearing M3 PT-IP Subjective Start: 05/03/19 08:40 Freq: NEEDED Status: Active Protocol: Document 05/05/19 10:44 AW (Rec: 05/05/19 11:02 AW [id number]) Subjective Physical Therapy Visit Type Type Treatment Note Visit Start Time 10:14 Visit Stop Time 10:38 Total Visit Minutes 24 Number of [employer] Visits 0 Physical Therapy Visit Comments Patient Comments Pt was resting comfortably in a chair, willing to mobilize with PT Therapy Pain Assessment Pain When Pain Assessed During Mobility FLACC Pain Scale Face Occasional grimace/frown Legs Uneasy, restless, tense Activity Quiet, moves easily Cry No cry (awake or asleep) Consolability Content, relaxed FLACC Total 2 M4 PT-IP Mobility and Gait Start: 05/03/19 08:40 Freq: NEEDED Status: Active Protocol: Document 05/05/19 10:44 AW (Rec: 05/05/19 11:02 AW [id number]) PT-Transfer Assessment Sit to and From Stand Sit to and from Stand Standby Assistance,Use of Upper Extremities Equipment Transfer Assistive Device Gait Belt,Front Wheeled Walker Transfers Transfer Destination Chair Transfer Technique Stand Step Pivot Transfer Ability Level of Assist Standby Assistance,Use of Upper Extremities Comments Mobility Comments Pt required less assist and no verbal cues for transfers today. She sequences appropriately and moves with good safety awareness. Gait Assessment Gait Gait Assistance Required: Standby Assistance Distance (Feet) 220 Able to Maintain Weight Bearing Status Yes During Gait Assistive Devices Assistive Device Gait Belt,Front Wheeled Walker Orthotic/Prosthetic Devices or Brace: No Gait Deviations General Gait Pattern Antalgic,Decreased Stride Length,Step-to Gait Factors Limiting Gait Function Factors Limiting Gait Function Decreased Activity Tolerance, Decreased Strength,Limited Range of Motion,Pain Comments Gait Comments Pt required SBA only today with no need for CGA with greater distances. She moves slowly, but responds appropriately when cued for increased speed and equal step length. Stair Climbing Assessment Evaluation Level of Assist On Stairs Standby Assistance,Contact Guard Assistance Devices Stair Climbing Assistive Devices Left Railing Technique/Endurance Stair Climbing Direction Ascend and Descend Stair Climbing Technique Step to Step Number of Steps Climbed 3 Stair Climbing Set # Repetitions (reps) 2 Comments Stair Climbing Comments First trial was forward-facing using left hand rail and hand -hold assist on the right. Second trial was completed with pt facing the left rail and side-stepping. She felt more secure with the side- stepping strategy which is appropriate for her since she has a sturdy left railing at home. M5 PT-IP Objective Assessments Start: 05/03/19 08:40 Freq: NEEDED Status: Active Protocol: Document 05/04/19 10:45 AW (Rec: 05/04/19 11:01 AW [id number]) Orientation Orientation/Cognition Level of Alertness Alert Orientation Name,Age,Birthday,Month,Date, Year,Day of Week,Place, Situation Language Function Ability No Deficits Noted Safety Awareness Understands Safety Issues Memory Description No Deficits Noted Gross Range of Motion Upper Extremity ROM Assessment Within Functional Limits Lower Extremity ROM Assessment Left Impaired Impairments Left knee is edematous and painful, lacking ~10 degrees extension. Flexion tolerated to ~45 degrees. Strength Upper Extremity Strength Assessment Within Functional Limits Lower Extremity Strength Assessment Left Impaired Comments Strength Comments Unable to assess LLE. Coordination Assessment Gross Coordination Gross Coordination WNL Sensation Assessment Sensation Gross Sensation Left LE Impaired Light Touch Impaired Sensation Description Paresthesia Comments Sensation Comments Pt reports paresthesia at left lateral knee. M6 PT-IP Treatment Start: 05/03/19 08:40 Freq: NEEDED Status: Active Protocol: Document 05/05/19 10:44 AW (Rec: 05/05/19 11:02 AW [id number]) Physical Therapy Treatment Exercises Exercises Ankle Pumps,Quad Sets,Heel Slides Education Education Provided Weight Bearing Status,Safety Other Treatments Other Treatment Performed Pt performing heel slides in supine and in sitting with a washcloth on the floor. Exercises tolerated well. M7 PT-IP Assessment and Plan Start: 05/03/19 08:40 Freq: NEEDED Status: Active Protocol: Document 05/05/19 10:44 AW (Rec: 05/05/19 11:02 AW [id number]) PT Summary Assessment and Plan Summary Impairments Pain,ROM,Strength,Balance, Sensation,Transfers,Gait, Activity Tolerance Assessment Summary Gema shows good effort in therapy and responds appropriately to cues for increased gait speed and step- through pattern. She is moving safely and with good attention to safety. PT recommends home with assistance and outpatient PT which is already scheduled with [facility] on 05/07/19. Goals Bed Mobility Goal Independent Transfer Goal Independent Gait Goal Standby Assistance Gait Distance 75 feet Other Goals Pt to ascend/descend 3 steps with bilateral rails SBA for safe home access. Frequency of Treatment Frequency Of Treatment Twice a Day Treatment Plan Physical Therapy Treatment Plan Bed Mobility Training,Transfer Training,Gait Training, Therapeutic Exercise,Balance Retraining,Post Op Education, Discharge Planning,Hot or Cold Pack,Neuromuscular Re-ed, Coordination Retraining,Manual Therapy Other Recommendations and Next Treatment Continue to reinforce stair Focus climbing strategies Recommendations To Nursing Amount of Assist Needed Standby Assistance Discharge Recommendations PT Discharge Recommendations Home with Assistance, Outpatient PT
[2019-05-05] MEDS: INSULIN ASPART 100 UNIT/ML INSULN PEN SUBCUT (12:30)
--- NOTE | 2019-05-05 13:03 | PM.DS.1 ---
History of Present Illness History of Present Illness Date Patient Seen: 05/05/19 Time Patient Seen: 13:05 Chief complaint: LEFT KNEE SURGERY HAS FEVER WAS HOT TO TOUCH Narrative: As per LINDA Pedro: Ms. Gema Bryan is a 68-year-old female patient with history significant for insulin-dependent diabetes, hypertension, hyperlipidemia, TIA, migraines and osteoarthritis who presents to the ER today with postop fever. The patient underwent left total knee arthroplasty with Dr. Avendano on 04/29/2019. The patient reports beginning to feel ill on postop day 3 with complaints of fevers and chills, headache, nausea without vomiting and diarrhea. Patient also noted that her blood sugars were more elevated and resistant to her usual treatment. She self-treated at home with Tylenol which did not seem to help significantly. The patient good planes of her left knee being warm, red and painful. She denies complaints of dizziness nasal congestion or sore throat. She has had no chest pain palpitations, shortness of breath cough or wheezing. She denies abdominal pain. She ambulates with difficulty and has not yet started physical therapy. She reports no paresthesias however the entire left leg is painful and swollen. Upon arrival in the emergency department the patient has a temperature of 100.4?, is tachycardic at 112, blood pressure 119/69, respiratory rate of 21 saturating 98% on room air. An x-ray of the knee finds areas of soft tissue show lucency overlying edematous tissue of the patella. Chest x-ray finds minimal increased vascularity suggestive of edema. Dr. Bustamante orthopedics was consulted who came in and tapped the knee with aspirated fluid sent to the ER that was bloody in appearance with results pending. On laboratory analysis the patient has an elevated white count of 11.1, hemoglobin of 10.8 hematocrit of 32.2 and platelets of 226. Her chemistry panel is unremarkable with a nonfasting glucose of 175. She does have an elevated BUN creatinine ratio of 26.7. A screening UA was obtained noting bacteria and reflex to culture. She had a CRP that is elevated at 16, sed rate elevated at 83, lactate that is normal 1.7 and procalcitonin is 0.1. The patient received Tylenol and was started on clindamycin 900 mg IV. The patient received her nighttime dose of glargine 30 units in the ER. The patient is admitted for SIRS with an unknown source of infection at this time. Discharge Providers Provider Date of admission: 05/03/19 02:02 Discharge Date: 05/05/19 Primary care physician: Bo Humphreys DO Consults: 05/03/19 02:49 Consult to Discharge Planning Routine Comment: Consult to Occupational Therapy Evaluate & Treat Comment: S/P LTKA (04/29/19) Physician Instructions: Evaluate and treat 05/03/19 02:50 Consult to Physical Therapy Evaluate & Treat Comment: S/P LTKA (04/29/19) Physician Instructions: Evaluate and Treat Consult to Physician Routine Comment: Consulting Provider: Bo Cornell Reason for consultation: SIRS S/P TKA Has provider been notified: Yes 05/03/19 10:13 Consult to Physical Therapy Evaluate & Treat Comment: Post op left total knee, WBAT Physician Instructions: Evaluate and Treat Discharge provider: Mayank Lance DO Summary Hospital Course Discharge Diagnosis: 1. Post-operative cellulitis, Active, present on admission 2. Diabetes mellitus type II, present on admission. 3. Hypertension, chronic, present on admission. Stable. 4. Hyperlipidemia, chronic, present on admission. Stable. Hospital Course: Gema Bryan is a 68-year-old female patient with a past medical history significant for hypertension, hyperlipidemia, TIA, diabetes mellitus type 2, insulin using, migraine headaches and osteoarthritis who presented to the ED with worsening knee pain, swelling, redness and fever. 1. Post-operative cellulitis, Active, present on admission. - Patient had erythema, edema and streaking on exam on admission. Her joint aspiration is negative and she rapidly improved with antibiotics. Will presume soft tissue infection of the leg and discharge with clindamycin to complete 10 day course of antibiotics given severity of symptoms on admission. Differential did include urinary source (however asymptomatic on arrival) and possible joint infection for which orthopedic surgery was consulted as noted below. -The patient presented with progressive worsening left knee pain with surrounding edema, erythema with streaking to groin (painful entire length and now outlined), and inability to move her leg. SIRS criteria met including: leukocytosis (WBC 11.1), febrile (temp 100.4?), tachycardia (HR 112). Did not meet sepsis criteria. -Risk factors include status post left total knee arthroplasty, postop day 3 at onset of symptoms and diabetes. -Elevated sed rate of 83 and CRP of 16, however, this is anticipated after surgery. -Left knee x-ray demonstrate knee arthroplasty with areas of lucency overlying the soft tissues of the patella. This appears new compared to 2017. Recommend correlation to any trauma. Otherwise, infection should be considered. -Blood cultures x2 have no growth to date. -Other infections ruled out including: UTI or pulmonary infection. Urinalysis with bacteria present but patient without genitourinary symptoms, therefore, risk control field representative of asymptomatic bacteriuria. Chest x-ray and respiratory PCR negative and patient without any upper respiratory tract symptoms. -Venous Doppler ultrasound negative for DVT. -Orthopedic surgery has been consulted and Dr. cornell performed a left knee aspiration which appeared to be a traumatic tap with fluid analysis demonstrated high PMNs 97% and Gram stain with many WBC without organisms and cultures have been negative. -Received clindamycin 900 mg IV x1 in the ED. Continued clindamycin 900 mg every 6 hours and levofloxacin 750 mg daily while inpatient. Patient will discharge on oral clindamycin for presumed cellulitis. -Ordered physical and occupational therapy evaluation and treatment 2. Diabetes mellitus type II, present on admission. -Hemoglobin A1c 7.4% on 04/02/2019. -No changes were made to her home regimen. 3. Hypertension, chronic, present on admission. Stable. -Continue home lisinopril 5 mg daily. 4. Hyperlipidemia, chronic, present on admission. Stable. -Continue home simvastatin 20 mg daily at bedtime. Status at Discharge Cognitive/behavioral status at discharge: oriented Overall status at discharge: patient is progressing back to baseline Time Spent with Patient Time spent: Greater than 30 minutes Exam Vital Signs (past 8 hours): - 05/05/19 08:00 05/05/19 08:50 05/05/19 09:25 Temperature 98.6 F Pulse Rate 91 H Respiratory Rate 18 Blood Pressure 134/76 134/76 Pulse Oximetry 99 99 05/05/19 12:00 Temperature 98.3 F Pulse Rate 90 Respiratory Rate 18 Blood Pressure 142/80 H Pulse Oximetry 99 Oxygen Delivery Method Room Air Oxygen Flow Rate 0 Narrative Exam Narrative: GENERAL APPEARANCE: Well developed, well nourished, in no acute distress. SKIN: There is a well circumscribed erythematous rash localized to the area over her left knee where a previous bandage was placed. Previously marked erythema has since resolved. HEENT: The sclerae were anicteric and conjunctivae were pink and moist. Extraocular movements were intact and pupils were equal, round with normal accommodation. External inspection of the ears and nose showed no scars, lesions, or masses. Lips, teeth, and gums showed normal mucosa. The oral mucosa, hard and soft palate, tongue and posterior pharynx were unremarkable. NECK: Supple and symmetric. There was no thyroid enlargement, and no tenderness, or masses were felt. CHEST: Normal AP diameter and normal contour without any kyphoscoliosis. LUNGS: Auscultation of the lungs revealed no wheezes, rhonchi, or rales. CARDIOVASCULAR: There was a regular rate and rhythm without any murmurs, gallops, rubs. Peripheral pulses were 2+ and symmetric. ABDOMEN: Soft and nontender with normal bowel sounds. No ascites was noted. MUSCULOSKELETAL: There was no tenderness to the L knee today. There is mild swelling around the L knee Muscle strength and tone were normal. EXTREMITIES: No cyanosis, clubbing or edema. NEUROLOGIC: Alert and oriented x 3. Normal affect. Gait was normal. Strength is +5/5 in the Upper Extremities and Lower Extremities Bilaterally. Sensation to touch was normal. Objective Labs Result Diagrams: 05/04/19 05:50 05/04/19 05:50 Discharge Plan Discharge Plan Patient Disposition: Home Discharge comment: You were admitted to the hospital for significant left knee pain and swelling. This improved after antibiotics were given. The orthopedic doctors in a procedure to remove fluid from her knee, these appeared negative for infection in the joint itself. You are being discharged home with antibiotics, which you should complete the entire course. Please follow-up with your orthopedic surgeons and her primary care doctor as scheduled. Discharge Med Rec/Prescriptions Prescriptions: New oxycodone 5 mg Tablet 5 mg PO Q4HR PRN (Reason: Pain, Moderate (4-6)) 7 Days Qty: 7 RF: 0 clindamycin HCl 300 mg capsule 300 mg PO QID 7 Days Qty: 28 RF: 0 Continued simvastatin 20 MG tablet 20 mg PO BEDTIME Qty: 0 RF: 0 metformin 1,000 MG tablet 1,000 mg PO BIDCC Qty: 0 RF: 0 Lantus U-100 Insulin 100 UNIT/1 ML solution 30 units SQ QPM Qty: 0 RF: 0 lisinopril 5 mg tablet 5 mg PO DAILY RF: 0 insulin glargine 100 unit/mL solution 70 units subcut QAM RF: 0 (DME) insulin syringe-needle U-100 1 mL 30 gauge x 1/2 syringe RF: 0 acetaminophen 325 mg tablet 975 mg PO TID PRN (Reason: Pain, Moderate) RF: 0 aspirin 81 mg tablet,delayed release (DR/EC) 81 mg PO DAILY RF: 0 Follow up/Referrals: Bo Humphreys DO [Primary Care Provider] - Provider Discharge Instructions Diet: Diet as Tolerated Activity: As tolerated Visit Report/Discharge Packet Instructions: Oxycodone, Clindamycin (By mouth) Discharge Data Primary Care Provider: Bo Humphreys
--- NOTE | 2019-05-05 13:55 | PT.IPTN ---
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 with pain , swelling, difficulty walking Onset Date 05/02/19 Weight Bearing Status Weight Bearing Status Full Weight Bearing M3 PT-IP Subjective Start: 05/03/19 08:40 Freq: NEEDED Status: Active Protocol: Document 05/05/19 13:46 AW (Rec: 05/05/19 13:55 AW [id number]) Subjective Physical Therapy Visit Type Type Treatment Note Visit Start Time 13:24 Visit Stop Time 13:44 Total Visit Minutes 20 Number of IMPLEMENTATION ARCHITECT Visits 0 Physical Therapy Visit Comments Patient Comments Pt resting in chair and anticipating discharge this afternoon Therapy Pain Assessment Pain When Pain Assessed During Mobility Pain Present Pain Present Pain Reported Location left leg Intensity 4 Scale Used n Description Aching,Sharp M4 PT-IP Mobility and Gait Start: 05/03/19 08:40 Freq: NEEDED Status: Active Protocol: Document 05/05/19 13:46 AW (Rec: 05/05/19 13:55 AW [id number]) PT-Transfer Assessment Sit to and From Stand Sit to and from Stand Standby Assistance,Use of Upper Extremities Equipment Transfer Assistive Device Gait Belt,Front Wheeled Walker Transfers Transfer Destination Chair,Toilet Transfer Technique Stand Step Pivot Transfer Ability Level of Assist Standby Assistance Comments Mobility Comments Pt required no more than SBA for toilet and chair transfers Gait Assessment Gait Gait Assistance Required: Standby Assistance Distance (Feet) 250 Able to Maintain Weight Bearing Status Yes During Gait Assistive Devices Assistive Device Gait Belt,Front Wheeled Walker Orthotic/Prosthetic Devices or Brace: No Gait Deviations General Gait Pattern Antalgic,Decreased Stride Length,Step-to Gait Factors Limiting Gait Function Factors Limiting Gait Function Decreased Activity Tolerance, Decreased Strength,Limited Range of Motion,Pain Comments Gait Comments Pt required fewer cues to correct step-to gait pattern and was able to maintain step- through for longer periods, even with conversational distraction Stair Climbing Assessment Evaluation Level of Assist On Stairs Standby Assistance,Contact Guard Assistance Devices Stair Climbing Assistive Devices Left Railing Technique/Endurance Stair Climbing Direction Ascend and Descend Stair Climbing Technique Step to Step Number of Steps Climbed 3 Stair Climbing Set # Repetitions (reps) 1 Comments Stair Climbing Comments Pt faced the left hand rail, using BUE support and requiring SBA/CGA and minimal cueing on descent to step wide enough with the LLE to have room for the right foot on the step. M5 PT-IP Objective Assessments Start: 05/03/19 08:40 Freq: NEEDED Status: Active Protocol: Document 05/04/19 10:45 AW (Rec: 05/04/19 11:01 AW [id number]) Orientation Orientation/Cognition Level of Alertness Alert Orientation Name,Age,Birthday,Month,Date, Year,Day of Week,Place, Situation Language Function Ability No Deficits Noted Safety Awareness Understands Safety Issues Memory Description No Deficits Noted Gross Range of Motion Upper Extremity ROM Assessment Within Functional Limits Lower Extremity ROM Assessment Left Impaired Impairments Left knee is edematous and painful, lacking ~10 degrees extension. Flexion tolerated to ~45 degrees. Strength Upper Extremity Strength Assessment Within Functional Limits Lower Extremity Strength Assessment Left Impaired Comments Strength Comments Unable to assess LLE. Coordination Assessment Gross Coordination Gross Coordination WNL Sensation Assessment Sensation Gross Sensation Left LE Impaired Light Touch Impaired Sensation Description Paresthesia Comments Sensation Comments Pt reports paresthesia at left lateral knee. M6 PT-IP Treatment Start: 05/03/19 08:40 Freq: NEEDED Status: Active Protocol: Document 05/05/19 13:46 AW (Rec: 05/05/19 13:55 AW [id number]) Physical Therapy Treatment Education Education Provided Weight Bearing Status,Safety M7 PT-IP Assessment and Plan Start: 05/03/19 08:40 Freq: NEEDED Status: Active Protocol: Document 05/05/19 13:46 AW (Rec: 05/05/19 13:55 AW [id number]) PT Summary Assessment and Plan Summary Impairments Pain,ROM,Strength,Balance, Sensation,Transfers,Gait, Activity Tolerance Assessment Summary The quality of Gema's gait is significantly improved. She is navigating stairs with SBA/CGA and manages ambulation with FWW, SBA, and minimal verbal cues for gait pattern. Pt did note a popping sensation in left knee when arising from toilet and a buckling sensation ~3 times during ambulation. However, no increase in pain associated with these observations. Pt is appropriate for discharge to home with family assist and outpatient PT when medically cleared. Goals Bed Mobility Goal Independent Transfer Goal Independent Gait Goal Standby Assistance Gait Distance 75 feet Other Goals Pt to ascend/descend 3 steps with bilateral rails SBA for safe home access. Frequency of Treatment Frequency Of Treatment Twice a Day Treatment Plan Physical Therapy Treatment Plan Bed Mobility Training,Transfer Training,Gait Training, Therapeutic Exercise,Balance Retraining,Post Op Education, Discharge Planning,Hot or Cold Pack,Neuromuscular Re-ed, Coordination Retraining,Manual Therapy Other Recommendations and Next Treatment Continue to reinforce stair Focus climbing strategies Recommendations To Nursing Amount of Assist Needed Standby Assistance Discharge Recommendations PT Discharge Recommendations Home with Assistance, Outpatient PT
--- NOTE | 2019-05-05 14:01 | CM.DPC ---
DCP: continued: case received, EMR reviewed. Discussed case in Team Rounds. Dr. Lance reported that he had discussed case with orthopedic team and that the infection was not deemed to be in the joint and that a d/c on oral antibiotics was appropriate. Pt has worked with PT. Will d/c home today as per plan and with outpt clinic and PT followup.
== END 2019-05-05 15:15 | disposition home or self-care (01) | DRG 863 ==
LOC: ED 05-03 01:49 → AC 05-03 07:11
PROVIDERS: Internal Medicine; Orthopaedic Surgery; Admitting Provider Nurse Practitioner Adult Health; Emergency Provider Emergency Medicine; Family Provider Family Medicine; PCP Family Medicine; Visit Provider Nurse Practitioner Adult Health
DX: T81.41XA Infection following a procedure, superficial incisional surgical site, initial encounter (principal); L03.116 Cellulitis of left lower limb; E11.9 Type 2 diabetes mellitus without complications; Z79.4 Long term (current) use of insulin; I10 Essential (primary) hypertension; E78.5 Hyperlipidemia, unspecified; Z96.652 Presence of left artificial knee joint
CPT/HCPCS: 36415; 36591; 71045; 73560; 80048; 80053; 81003; 81015; 82962; 83605; 83735; 84145; 85025; 85651; 86140; 87040; 87070; 87075; 87077; 87086; 87185; 87186; 87205; 87633; 89051; 93971; 96361; 96365; 96372; 97110; 97116; 97161; 97165; 97530; 97535; 99284; J1650; J1956; J3480